=== PATIENT | male | born 1970 | race Caucasian/White ===

== ENCOUNTER 2020-01-09 10:46 | Inpatient (IN) ==
[2020-01-09] MEDS ORDERED: SODIUM CHLORIDE 0.9% 1000ML 1,000 ML IV SCH ×2 (12:00→14:30)
[2020-01-09 12:11] LABS: Basophils # (auto) 0.02 K/uL (0-0.2); Basophils % (auto) 0.3 %; Eosinophils # (auto) 0.07 K/uL (0-0.5); Eosinophils % (auto) 1.1 %; Hematocrit (blood only) 33.5 % (42-52); Hemoglobin 11.8 g/dL (14.0-18.0); Immature Granulocytes # (auto) 0.07 K/uL (0.00-0.02); Immature Granulocytes % (auto) 1.1 %; Lymphocytes # (auto) 1.09 K/uL (1.2-3.4); Lymphocytes % (auto) 17.6 %; Mean Corpuscular Hemoglobin 28.2 pg (25-34); Mean Corpuscular Hgb Conc 35.2 g/dL (32-36); Mean Platelet Volume 9.5 fL (7.4-10.4); Monocytes # (auto) 0.75 K/uL (0.11-0.59); Monocytes % (auto) 12.1 %; Neutrophils # (auto) 4.21 K/uL (1.4-6.5); Neutrophils % (auto) 67.8 %; Platelet Count 209 K/uL (130-400); RDW Coefficient of Variation 14.3 % (11.5-14.5); RDW Standard Deviation 41.7 fL (36.4-46.3); Red Blood Count 4.19 M/uL (4.7-6.1); White Blood Count 6.21 K/uL (4.8-10.8)
[2020-01-09 12:13] LABS: Appearance Urine Clear (Clear); Bacteria Urine Automated Negative (Negative); Blood Urine Negative (Negative); Color Urine Dark Yellow; Glucose Urine UA Trace (Negative); Ketones Urine Trace (Negative); Leukocyte Esterase Urine Trace (Negative); Nitrite Urine Positive (Negative); Protein Urine Negative (Negative); RBC Urine Automated 0-4 /hpf (0-4); Specific Gravity Urine 1.014 (1.000-1.030); Urobilinogen Urine Negative (Negative)
[2020-01-09 12:17] LABS: Bilirubin Urine 3+ (Negative)
[2020-01-09 12:18] LABS: Ictotest Urine Positive (Negative)
[2020-01-09 12:32] LABS: Albumin Globulin Ratio 0.6 (0.9-2); Albumin Level 3.2 gm/dl (3.4-5.0); BUN Creatinine Ratio 15.3 (10-20); Bilirubin,Total 5.2 mg/dl (0.2-1); Calcium 8.7 mg/dl (8.5-10.1); Creatinine Clr Calc Pharmacy 70.7 ml/min; Est GFR (Non-African American) 55.2; Globulin 5.6 gm/dl (2.5-4.0); Potassium 3.7 mmol/L (3.5-5.1); Total Protein 8.8 gm/dl (6.4-8.2)
[2020-01-09] MEDS ORDERED: CEFEPIME 2,000 MG/20 ML VIAL IV STA (12:49)
--- NOTE | 2020-01-09 12:51 | Emergency Department Note ---
History of Present Illness General Chief complaint: Abnormal Labs/Diagnostic Testing Stated complaint: ABNORMAL BLOOD WORK-ABD PAIN,NAUSEA LAST WEEK Time Seen by Provider: 01/09/20 11:35 Source: patient Mode of arrival: ambulatory Limitations: no limitations History of Present Illness Provider complaint: Jaundice This is a 49-year-old male who presents to the ED with a chief complaint of abnormal labs and right upper quadrant abdominal pain. The patient has a history of gallstones. He was supposed to have his gallbladder removed prior to Cov19 but this was delayed. The patient states that he was supposed to have his gallbladder out in September. The patient has developed right upper quadrant abdominal pain this weekend. He had associated nausea and fevers and chills as well as a temperature of 100.4. He states that his pain seems to be better now. He currently does not have any nausea. He noticed that he was becoming jaundice and was seen by his PCP and had blood work yesterday. His blood work s howed that his bilirubin and LFTs were elevated. He was referred here for further evaluation today. He denies any nausea or vomiting. Home Medications Home Medications Medication Instructions Recorded Confirmed Type hydrochlorothiazide 25 mg PO QAM 08/10/19 01/09/20 History losartan [Cozaar] 100 mg PO QAM 08/10/19 01/09/20 History metformin 1,000 mg PO BID 08/10/19 01/09/20 History pantoprazole [Protonix] 40 mg PO QAM 08/10/19 01/09/20 History Allergies Allergy/AdvReac Type Severity Reaction Status Date / Time No Known Allergies Allergy Unverified 01/09/20 11:19 Past Med/Surg History Medical History Abnormal liver scan pt states "they saw something on my liver. 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 Surgical History History of appendectomy History of ERCP History of esophagogastroduodenoscopy (EGD) Family History Mother Family history of diabetes mellitus Sister Family history of diabetes mellitus Other No family history of adverse response to anesthesia Social History Smoking Status: Current some day smoker Tobacco Type: Cigars Cigarettes Per Day: occasional; Second Hand Exposure: No (occ at workplace); Hx Alcohol Use: Yes Hx Substance Use: No Preferred Language: Micronesian Communication Ability: Effective Director Of Archives Required: No Beliefs That Will Affect Care: None Current Living Situation: Spouse Feels Safe at Home: Yes Review of Systems A total of 10 systems reviewed and were otherwise negative Physical Exam Vital Signs Vital Signs - 24 hr 01/09/20 10:47 01/09/20 13:09 Temperature 37.1 C Temperature Source Oral Pulse Rate 111 H Pulse Rate [Apical] 78 Respiratory Rate 20 18 Respiratory Effort / Characteristics Non-Labored Spontaneous Respiratory Depth Normal Respiratory Pattern Regular Blood Pressure 141/91 H Blood Pressure [Right Arm] 135/87 Blood Pressure Mean 107 Blood Pressure Mean [Right Arm] 103 Pulse Oximetry 100 98 Oxygen Delivery Method Room Air Room Air Sepsis Recent Fever Within 48 Hours No Sepsis New/Unexplained Change in Mental Status N/A Sepsis Action Taken by Nursing No Action Required CONSTITUTIONAL/VITAL SIGNS: Reviewed / noted above. GENERAL: Non-toxic in appearance. INTEGUMENTARY: Warm, dry, and [place]. HEAD: Normocephalic. EYES: Positive scleral icterus. ENT/OROPHARYNX: clear and moist. LYMPHADENOPATHY/NECK: Is supple without lymphadenopathy or meningismus. RESPIRATORY: Lungs clear and equal. CARDIOVASCULAR: Tachycardic rate and regular rhythm. GI/ABDOMEN: Soft and nontender. No organomegaly or pulsatile mass. No rebound or guarding. Normal bowel sounds. EXTREMITIES: Warm and well perfused. BACK: No CVA tenderness. NEUROLOGICAL: Intact without focal deficits. PSYCHIATRIC: normal affect. MUSCULOSKELETAL: Normally developed with good muscle tone. TRIAGE NURSING DOCUMENTATION REVIEWED. Course Administered Medications Discontinued Medications Sodium Chloride (Nss 1000ml) 1,000 mls @ 999 mls/hr IV .Q1H1M JOSE RAMON Stop: 01/09/20 13:00 Last Admin: 01/09/20 12:10 Dose: 999 mls/hr Documented by: [id number] Cefepime HCl (Maxipime) 2,000 mg in 20 mls @ 5 mls/min IV NOW STA; Protocol Stop: 01/09/20 12:52 Last Admin: 01/09/20 13:19 Dose: 5 mls/min Documented by: [id number] Medical Decision Making Differential Diagnosis Differential considered: pancreatitis, hepatitis, acute cholecystitis, AAA, UTI, pyelonephritis, kidney stones, appendicitis, diverticulitis, shingles, bowel obstruction, mesenteric ischemia, intussusception,hernia, testicular torsion, ovarian torsion, ruptured ovarian cyst,ectopic , . Medical Records Attestation: I reviewed the patient's medical records. Home Medications Current Medication List: was personally reviewed by me Laboratory Data Attestation: I reviewed the patient's lab results. Result diagrams: 01/09/20 12:01 01/09/20 12:01 Lab Results 01/09/20 01/09/20 01/09/20 Range/Units 12:01 12:01 Unknown WBC 6.21 (4.8-10.8) K/uL RBC 4.19 L (4.7-6.1) M/uL Hgb 11.8 L (14.0-18.0) g/dL Hct 33.5 L (42-52) % MCV 80.0 (80-100) fL MCH 28.2 (25-34) pg MCHC 35.2 (32-36) g/dL RDW Std Deviation 41.7 (36.4-46.3) fL RDW Coeff of Gretchen 14.3 (11.5-14.5) % Plt Count 209 (130-400) K/uL MPV 9.5 (7.4-10.4) fL Immature Gran % (Auto) 1.1 % Neut % (Auto) 67.8 % Lymph % (Auto) 17.6 % [place] % (Auto) 12.1 % Eos % (Auto) 1.1 % Baso % (Auto) 0.3 % Neut # (Auto) 4.21 (1.4-6.5) K/uL Lymph # (Auto) 1.09 L (1.2-3.4) K/uL [place] # (Auto) 0.75 H (0.11-0.59) K/uL Eos # (Auto) 0.07 (0-0.5) K/uL Baso # (Auto) 0.02 (0-0.2) K/uL Immature Gran # (Auto) 0.07 H (0.00-0.02) K/uL Sodium 137 (136-145) mmol/L Potassium 3.7 (3.5-5.1) mmol/L Chloride 107 (98-107) mmol/L Carbon Dioxide 23 (21-32) mmol/L Anion Gap 7.0 (3-11) BUN 22 H (7-18) mg/dl Creatinine 1.47 H (0.6-1.4) mg/dl Est Cr Clr Drug Dosing 70.7 ml/min Est GFR ( Amer) 64.0 Est GFR (Non-Af Amer) 55.2 BUN/Creatinine Ratio 15.3 (10-20) Glucose 204 H (70-99) mg/dl Calcium 8.7 (8.5-10.1) mg/dl Total Bilirubin 5.2 H (0.2-1) mg/dl AST 105 H (15-37) U/L ALT 243 H (12-78) U/L Alkaline Phosphatase 307 H (45-117) U/L Total Protein 8.8 H (6.4-8.2) gm/dl Albumin 3.2 L (3.4-5.0) gm/dl Globulin 5.6 H (2.5-4.0) gm/dl Albumin/Globulin Ratio 0.6 L (0.9-2) Lipase 330 (73-393) U/L Urine Color Dark Yellow Urine Appearance Clear (Clear) Urine pH 5.0 (4.5-7.5) Ur Specific [place] 1.014 (1.000-1.030) Urine Protein Negative (Negative) Urine Glucose (UA) Trace H (Negative) Urine Ketones Trace H (Negative) Urine Blood Negative (Negative) Urine Nitrite Positive A (Negative) Urine Bilirubin 3+ H (Negative) Urine Urobilinogen Negative (Negative) Ur Leukocyte Esterase Trace H (Negative) Urine WBC (Auto) 1-5 (0-5) /hpf Urine RBC (Auto) 0-4 (0-4) /hpf U Hyaline Cast (Auto) 5-10 H (0-5) /lpf U Epithel Cells (Auto) 5-10 H (0-5) /lpf Urine Bacteria (Auto) Negative (Negative) Imaging Data Radiologist's Impression: US gallbladder CLINICAL HISTORY: elevated LFTS jaundice COMPARISON STUDY: CT scan dated 02/17/2018 FINDINGS: No focal hepatic masses are visualized. There is no definite intrahe patic biliary ductal dilatation. The gallbladder is contracted. There is an equivocal subcentimeter calculus in the gallbladder neck. The pancreas is poorly visualized due to overlying bowel gas. No definite pancreatic abnormalities are evident. The common bile duct appeared mildly dilated and appear to contain echogenic debris. IMPRESSION: 1. Mildly dilated common bile duct ranging from 8 to 10 mm. Echogenic debris was visualized within the duct. 2. Contracted gallbladder containing an equivocal 8 mm calculus Blood Pressure Blood Pressure Findings: Elevated blood pressure Blood Pressure Disposition: further management by hospitalist LOUISE Delgado The patient presents to the emergency department with abnormal LFTs. He has a history of gallstones. His exam reveals some mild right upper quadrant abdominal tenderness. His vital signs are stable. He has had a recent fever. His white blood cell count was normal. His BUN is 22 and his creatinine is 1.47. Glucose is 204. Total bilirubin is 5.2. AST is 105, ALT is 243 and alkaline phosphatase is 307. The patient's urine reveals bilirubin and nitrite positive. He also has some leukocyte Estrace. Gallbladder ultrasound shows a 8 mm gallstone with a mildly dilated biliary duct. The patient will be seen by the hospital service for further evaluation and care. He was given normal saline IV 1 L. The patient was also given IV cefepime as he reports that he had a fever recently associated with his symptoms. Impression & Plan Biliary obstruction, Cholelithiasis, Transaminitis Discharge Plan Visit Data Chief Complaint: Abnormal Labs/Diagnostic Testing Stated Complaint: ABNORMAL BLOOD WORK-ABD PAIN,NAUSEA LAST WEEK ED Provider: Chase Sanchez Discharge Problem: Biliary obstruction, Cholelithiasis, Transaminitis Patient Disposition: Being Evaluated by Hospitalist Forms Stand Alone Forms: [facility], [facility], Important Visit Information Prescriptions Prescriptions: No Action pantoprazole [Protonix] 40 mg Tablet,Delayed Release (Dr/Ec) 40 mg PO QAM RF: 0 metformin 1,000 mg Tablet 1,000 mg PO BID RF: 0 hydrochlorothiazide 25 mg Tablet 25 mg PO QAM RF: 0 losartan [Cozaar] 100 mg Tablet 100 mg PO QAM RF: 0 Referrals Referrals: Jesus Woodall MD [Primary Care Provider] - Discharge Problem: Cholelithiasis Qualifiers: Cholelithiasis location: gallbladder Cholecystitis presence: without cholecystitis Biliary obstruction: with biliary obstruction Qualified Code(s): K80.21 - Calculus of gallbladder without cholecystitis with obstruction
--- NOTE | 2020-01-09 13:15 | Ultrasound Report ---
US gallbladder CLINICAL HISTORY: elevated LFTS jaundice COMPARISON STUDY: CT scan dated 02/17/2018 FINDINGS: No focal hepatic masses are visualized. There is no definite intrahepatic biliary ductal di latation. The gallbladder is contracted. There is an equivocal subcentimeter calculus in the gallbladder neck. The pancreas is poorly visualized due to overlying bowel gas. No definite pancreatic abnormalities ar e evident. The common bile duct appeared mildly dilated and appear to contain echogenic debris. IMPRESSION: 1. Mildly dilated common bile duct ranging from 8 to 10 mm. Echogenic debris was visualized within th e duct. 2. Contracted gallbladder containing an equivocal 8 mm calculus ACT 112: Negative or not required by law. Electronically signed by: Jose Antonio Eaton M.D. 01/09/2020 1:14 PM
[2020-01-09] MEDS ORDERED: ONDANSETRON INJ 2 MG/ML 2 ML VIAL IV PRN ×2 (14:29→17:55)
[2020-01-09] MEDS ORDERED: ACETAMINOPHEN 325 MG TAB PO PRN (14:29)
--- NOTE | 2020-01-09 14:55 | Gastrointestinal Consultation ---
Date of Consultation January 09, 2020 Assessment & Plan (1) PSC (primary sclerosing cholangitis): 1. ERCP today by Dr. Chappell 2. Zosyn 3. NPO 4. Further recommendations to follow ERCP. Present on Admission?: Yes (2) Cholelithiasis: Present on Admission?: Yes (3) Biliary obstruction: Present on Admission?: Yes Supervising Physician Co-Signing Physician Notes I performed a history and physical examination of the patient today, including specifically on physical exam - soft abdomen. I have discussed the patient's management with the advanced practitioner. Please refer to the nurse practitioner's note for the documented findings and plan of care. ERCP today for cholangitis History of Present Illness Reason for Consultation: Choledocholithiasis Requesting Physician: Dr. Velasquez Attending Physician: Dr. Velasquez History of Present Illness Mr. Zach Graham is a 49 yr old male pt of Dr. Woodall with a hx of PSC, HTN, DM-2 Celiac and MGUS. He follows with Lauren Hernandez for Celiac and new dx of PSC in 2019. He is maintained on ursodiol. He underwent ERCP by Dr. Chappell in Jul 2019. He has known cholelithiasis and was planning for cholecystectomy in September but it was delayed due to COVID. Starting on January 02, he has had intermittent RUQ pain and nausea. He also had to 100.4, nausea. Today he noticed jaundice, dark urine and light BMs. Currently symptoms are better and he is afebrile, but he was seen by his on Tuesday, got labs yesterday. Today PCP contact him and directed him to the ED. On arrival at [facility], US with dilated, debris filled CBD. LFTs elevated T Bili 5.2, AST 105, ALT 243, Alk Phos 307. Most recent prior LFTs in the OP setting were normal in November 2019. WBC is normal at 6. He is awake, alert, oriented comfortable and hemodyamically stable. He has recieved a dose of Cefepime. Allergies Allergy/AdvReac Type Severity Reaction Status Date / Time No Known Allergies Allergy Unverified 01/09/20 11:19 Home Medications Home Medications Medication Instructions Recorded Confirmed Type hydrochlorothiazide 25 mg PO QAM 08/10/19 01/09/20 History losartan [Cozaar] 100 mg PO QAM 08/10/19 01/09/20 History metformin 1,000 mg PO BID 08/10/19 01/09/20 History pantoprazole [Protonix] 40 mg PO QAM 08/10/19 01/09/20 History ursodiol 500 mg PO TID 01/09/20 01/09/20 History Patient History Medical History Abnormal liver scan pt states "they saw something on my liver. 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 Surgical History History of appendectomy History of ERCP History of esophagogastroduodenoscopy (EGD) Family History Mother Family history of diabetes mellitus Sister Family history of diabetes mellitus Other No family history of adverse response to anesthesia Social History (Updated 01/09/20 @ 15:08 by Adelita Hernandez PA-C) Smoking Status: Current some day smoker Tobacco Type: Cigars Cigarettes Per Day: occasional; Second Hand Exposure: No; Do You Dip or Chew Tobacco: No; Tobacco Cessation Education Requested by Patient: No Hx Alcohol Use: Yes Alcohol Intake Frequency: 2-4 x/Month Hx Substance Use: No Preferred Language: Wallisian Communication Ability: Effective Dietitian Teaching Required: No Beliefs That Will Affect Care: None Current Living Situation: Spouse Other Information That Helps Us Care for You: No Feels Safe at Home: Yes Safety Concerns: Feels Safe At This Time Review of Systems Review of Systems: ROS: Gen: + fevers; Denies weakness, weight loss Eyes: + icterus No eye redness, or pain, no recent vision changes Resp: No SOB, no cough Cardio: No palpitations/irregular beats, no chest pain GI: + RUQ abdominal pain, + nausea/vomiting : Denies pain on urination Skin: + jaundice; + diffuse itching; no new rashes Physical Exam Constitutional: WD/WN, vitals as above Eyes: PERRL, conjunctivae normal, anicteric sclerae ENMT: external ear and nose normal, oropharynx normal Neck: trachea midline, no thyromegaly Respiratory: normal respiratory effort, lungs clear to auscultation Cardiovascular: RRR, no murmur, no edema Gastrointestinal (Abdomen): Inspection/Auscultation: abdomen normal to inspection; abdomen not distended Percussion/Palpation: abdomen soft; abdomen nontender Skin: + jaundice Neurologic: PERRL, EOMI, accommodation nl, no face palsy, no dysarthria Psychiatric: A+Ox3, euthymic affect Lymphatic: no cervical or axillary lymphadenopathy Results & Data ([facility]) Vital Signs (Past 12 Hours) Vital Signs Temp Pulse Pulse Resp BP BP Pulse Ox 01/09/20 13:09 78 18 135/87 98 01/09/20 10:47 37.1 C 111 H 20 141/91 H 100 Laboratory Results WBC 6, Hb 11, Hct 33, Plt 209, Na 137, K 3.7, BUN 22, Cr 1.47. Diagnostic Findings US 01/09/20: 1. Mildly dilated common bile duct ranging from 8 to 10 mm. Echogenic debris was visualized within the duct. 2. Contracted gallbladder containing an equivocal 8 mm calculus (1) Cholelithiasis Biliary obstruction: with biliary obstruction Cholecystitis presence: without cholecystitis Cholelithiasis location: gallbladder Qualified Code(s): K80.21 - Calculus of gallbladder without cholecystitis with obstruction
--- NOTE | 2020-01-09 15:00 | History & Physical Report ---
Date of Service January 09, 2020 Assessment & Plan (1) RUQ pain: (2) Transaminitis: (3) Cholelithiasis: Pt is 49 y/o M with PMH DM II, HTN, h/o gallstones presented to ER with c/o RUQ, abdominal pain, nausea, decreased oral intake x 1 week. Last week with reported low grade fever. Today reports no current nausea or abdominal pain. Ate several crackers this morning at 6:00AM In ER afebrile, P: 111 down to 78, R: 20, BP: 141/91, 100% on RA. WBC: 6, T bili: 5.2, AST: 105, ALT: 243, Alk Phos: 307, Lipase: 330 Gallbladder US: 1. Mildly dilated common bile duct ranging from 8 to 10 mm. Echogenic debris was visualized within the duct. 2. Contracted gallbladder containing an equivocal 8 mm calculus -In ER received 1L NSS, cefepime -NPO for now -Morphine prn pain, Zofran prn nausea -IVF -Cefepime -GI consult, collection correspondent aware and plans for ERCP -General surgery consult -CBC, CMP in am (4) TOO (acute kidney injury): BUN: 22, Cr: 1.47, GFR: 55 Suspect secondary to dehydration -IVF -Avoid nephrotoxic agents when possible (5) HTN (hypertension): Stable -Will hold losartan and HCTZ secondary to TOO (6) Diabetes mellitus, type 2: A1c: 6.5 on 01/08/2020 -Hold metformin -Novolog sliding scale with loose parameters at this time secondary to NPO status DVT Prophylaxis -Low risk, ambulate Follows with Dr Woodall for routine care Pt was seen and care coordinated with Dr Velasquez. See addendum History of Present Illness Chief Complaint: RUQ abdominal pain Primary Care Provider: Jesus Woodall MD Pt is 49 y/o M with PMH DM II, HTN, h/o gallstones presented to ER with c/o abdominal pain x 1 week. Pt with known h/o gallstones and was to have gallbladder out several months ago but this was postponed secondary to the pandemic. Pt states 6 days ago started with not feeling well with low grade fever 100.4F, nausea and dry heaves. Was followed by RUQ discomfort. Has been having decreased oral intake. Denies vomiting or diarrhea. Saw PCP office on 01/07/2020 and had labs yesterday revealing elevated LFTs and was referred to ER today. Pt states today started feeling better and no nausea or abdominal pain today. Denies diaphoresis, TELLES, dizziness, syncope, vision changes, neck pain, CP, SOB, orthopnea, palpitations, cough, sore throat, choking, otalgia, rhinorrhea, paresthesias, weakness, extremity weakness, extremity edema, rashes, urinary symptoms. Allergies Allergy/AdvReac Type Severity Reaction Status Date / Time No Known Allergies Allergy Unverified 01/09/20 11:19 Home Medications Home Medications Medication Instructions Recorded Confirmed Type hydrochlorothiazide 25 mg PO QAM 08/10/19 01/09/20 History losartan [Cozaar] 100 mg PO QAM 08/10/19 01/09/20 History metformin 1,000 mg PO BID 08/10/19 01/09/20 History pantoprazole [Protonix] 40 mg PO QAM 08/10/19 01/09/20 History ursodiol 500 mg PO TID 01/09/20 01/09/20 History Past Med/Surg History Medical History Abnormal liver scan pt states "they saw something on my liver. 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 Surgical History History of appendectomy History of ERCP History of esophagogastroduodenoscopy (EGD) Family History Mother Family history of diabetes mellitus Sister Family history of diabetes mellitus Other No family history of adverse response to anesthesia Social History (Updated 01/09/20 @ 15:08 by Adelita Hernandez PA-C) Smoking Status: Current some day smoker Tobacco Type: Cigars Cigarettes Per Day: occasional; Second Hand Exposure: No; Do You Dip or Chew Tobacco: No; Tobacco Cessation Education Requested by Patient: No Hx Alcohol Use: Yes Alcohol Intake Frequency: 2-4 x/Month Hx Substance Use: No Preferred Language: Tanzanian Communication Ability: Effective Basketball Coach Required: No Beliefs That Will Affect Care: None Current Living Situation: Spouse Other Information That Helps Us Care for You: No Feels Safe at Home: Yes Safety Concerns: Feels Safe At This Time Review of Systems Review of Systems: All systems reviewed & are unremarkable except as noted in HPI & below Physical Exam Physical Exam: General: no distress, WDWN Head: normocephalic, atraumatic Eyes: PERRL, EOM's intact, conjunctiva non-injected, +icteric ENT: normal inspection external ears, nose, mucous membranes mildly dry Neck: supple, trachea midline, non-tender Lungs: clear, no respiratory distress, no wheezing/rhonchi/rales CV: RRR, no murmur, no pretibial edema Abd: normal BS, soft, mild tenderness to palpation RUQ without rebound or guarding Ext: no cyanosis, no calf tenderness Neuro: A&O x 3, no focal deficits noted, normal affect Skin: warm, dry, skin slight yellow discoloration Results & Data Results & Data ([facility]) Vital Signs (Past 12 Hours) Vital Signs Temp Pulse Pulse Resp BP BP Pulse Ox 01/09/20 13:09 78 18 135/87 98 01/09/20 10:47 37.1 C 111 H 20 141/91 H 100 Laboratory Results Short CBC 01/09/20 Range/Units 12:01 WBC 6.21 (4.8-10.8) K/uL Hgb 11.8 L (14.0-18.0) g/dL Hct 33.5 L (42-52) % Plt Count 209 (130-400) K/uL BMP 01/09/20 12:01 Sodium 137 Potassium 3.7 Chloride 107 Carbon Dioxide 23 BUN 22 H Creatinine 1.47 H Glucose 204 H Calcium 8.7 Liver Function 01/09/20 Range/Units 12:01 Total Bilirubin 5.2 H (0.2-1) mg/dl AST 105 H (15-37) U/L ALT 243 H (12-78) U/L Alkaline Phosphatase 307 H (45-117) U/L Albumin 3.2 L (3.4-5.0) gm/dl Urine 01/09/20 Range/Units Unknown Urine Color Dark Yellow Urine Appearance Clear (Clear) Urine pH 5.0 (4.5-7.5) Ur Specific [place] 1.014 (1.000-1.030) Urine Protein Negative (Negative) Urine Glucose (UA) Trace H (Negative) Diagnostic Findings GALLBLADDER US: IMPRESSION: 1. Mildly dilated common bile duct ranging from 8 to 10 mm. Echogenic debris was visualized within the duct. 2. Contracted gallbladder containing an equivocal 8 mm calculus Code Status & VTE Plan VTE Prophylaxis Plan VTE Prophylaxis will be ordered: Yes Supervising Physician Co-Signing Physician Notes Attending addendum: Patient seen and examined, care coordinated with Melanie Hernandez PA-C 49-year-old male with history of biliary colic, was scheduled to have laparoscopic cholecystectomy by Dr. Arteaga on September this year, Elective surgery was postponed due to secondary to COVID-19 pandemic. Patient presents with on and off right upper quadrant pain for last 5 days, Ultrasound of gallbladder showed possible obstructed gallstone biliary duct, Labs shows elevated bilirubin greater than 5/elevated AST ALT, transaminases Patient is afebrile, normal white count, does reports of low-grade fever and chills past few days Vitals as reported Lab and images reviewed Physical exam: as per Melanie Hernandez PA-C Obstructed gallstone/cholelithiasis/biliary colic [facility] updated, patient is ordered n.p.o., will have ERCP later today General surgery consulted for possible elective cholecystectomy Acute renal failure: Getting elevated 1.4, possible secondary to dehydration, poor p.o. intake, for acute gallstone cholecystitis Ordered for IV fluid, avoid NSAIDs and contrast studies Please refer to further documentation by Melanie Hernandez PA-C for discussion of other issues Rere Velasquez MD (1) Cholelithiasis Biliary obstruction: with biliary obstruction Cholecystitis presence: without cholecystitis Cholelithiasis location: gallbladder Qualified Code(s): K80.21 - Calculus of gallbladder without cholecystitis with obstruction
[2020-01-09 15:18] LABS: Prothrombin Time 10.6 Seconds (9.0-12.0)
[2020-01-09] MEDS ORDERED: PIPERACILL/TAZOBAC CONSULT ACTIVE PRN (15:37)
--- NOTE | 2020-01-09 16:14 | Anesthesiology Consultation ---
Date of Service January 09, 2020 Assessment & Plan (1) Encounter for pre-operative examination: Chart Review Chart Review: Acceptable Risk for Surgery History Surgery Operation Date: 01/09/20 12:15 Proposed Procedures p Endoscopic Retrograde Cholangiopancreatogram - Harmony Chappell MD Height/Weight Height: 6 ft 2 in Weight: 92.8 kg Allergies Allergy/AdvReac Type Severity Reaction Status Date / Time No Known Allergies Allergy Unverified 01/09/20 11:19 Medications Home Medications Medication Instructions Recorded Confirmed Last Taken hydrochlorothiazide 25 mg PO QAM 08/10/19 01/09/20 Unknown losartan [Cozaar] 100 mg PO QAM 08/10/19 01/09/20 Unknown metformin 1,000 mg PO BID 08/10/19 01/09/20 Unknown pantoprazole [Protonix] 40 mg PO QAM 08/10/19 01/09/20 Unknown ursodiol 500 mg PO TID 01/09/20 01/09/20 Unknown Past Medical History Medical History Abnormal liver scan pt states "they saw something on my liver. 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 Past Family History Family History Mother Family history of diabetes mellitus Sister Family history of diabetes mellitus Other No family history of adverse response to anesthesia Past Surgical History Surgical History History of appendectomy History of ERCP History of esophagogastroduodenoscopy (EGD) Social History Smoking Status: Current some day smoker tobacco type: cigars Smoking cigarettes per day: occasional Do You Dip or Chew Tobacco: No Hx Alcohol Use: Yes alcohol intake frequency: a few times a month Alcohol Intake Frequency Comment: 2 to 4 times a month Hx Substance Use: No substance use type: does not use Physical Exam Vital Signs Last Vital Signs Temp 37.1 C 01/09/20 10:47 Pulse 86 01/09/20 15:46 Resp 20 01/09/20 15:46 BP 135/84 01/09/20 15:46 Pulse Ox 100 01/09/20 15:46 Testing Laboratory Results 01/09/20 12:01 01/09/20 12:01 PT 10.6 Seconds (9.0-12.0) 01/09/20 14:58 INR 1.0 (0.9-1.1) 01/09/20 14:58 Urine Color Dark Yellow 01/09/20 Unknown Urine Appearance Clear (Clear) 01/09/20 Unknown Urine pH 5.0 (4.5-7.5) 01/09/20 Unknown Ur Specific [place] 1.014 (1.000-1.030) 01/09/20 Unknown Urine Protein Negative (Negative) 01/09/20 Unknown Urine Glucose (UA) Trace (Negative) H 01/09/20 Unknown Urine Ketones Trace (Negative) H 01/09/20 Unknown Urine Nitrite Positive (Negative) A 01/09/20 Unknown Ur Leukocyte Esterase Trace (Negative) H 01/09/20 Unknown Urine WBC (Auto) 1-5 /hpf (0-5) 01/09/20 Unknown Urine RBC (Auto) 0-4 /hpf (0-4) 01/09/20 Unknown U Hyaline Cast (Auto) 5-10 /lpf (0-5) H 01/09/20 Unknown U Epithel Cells (Auto) 5-10 /lpf (0-5) H 01/09/20 Unknown Urine Bacteria (Auto) Negative (Negative) 01/09/20 Unknown
[2020-01-09] MEDS ORDERED: GLUCOSE 10 TABS/TUBE PO PRN (16:15)
[2020-01-09] MEDS ORDERED: GLUCAGON FOR INJ 1 MG VIAL SQ PRN (16:15)
[2020-01-09] MEDS ORDERED: MoRPHine SULFATE 2 MG/ML CARP IV PRN (16:15)
[2020-01-09] MEDS ORDERED: CARBOHYDRATES FOR HYPOGLYCEMIA PO PRN (16:15)
[2020-01-09] MEDS ORDERED: CEFEPIME 2,000 MG in SYRINGE 7.5 ML IV SCH (16:15)
[2020-01-09] MEDS ORDERED: DEXTROSE 50% 50 ML SYRINGE IV PRN (16:15)
[2020-01-09] MEDS ORDERED: GLUCOSE 40% GEL 15 GM TUBE PO PRN (16:15)
[2020-01-09] MEDS ORDERED: PIPERACILLIN/TAZOBACTAM 3.375 GM in DEXTROSE 5% 100 ML IV ONE (16:30)
[2020-01-09] MEDS ORDERED: INSULIN ASPART 100 UNITS/ML 3 ML PEN SC SCH (16:30)
[2020-01-09] MEDS ORDERED: Nursing to Pharmacy Communication SCH (17:15)
--- NOTE | 2020-01-09 17:39 | History & Physical Bridge Note ---
Date of Service January 09, 2020 History & Physical Bridge Note I have examined the patient, reviewed the History & Physical and in the interval since the performance of the History & Physical I have noted the following changes of clinical significance: no changes noted
[2020-01-09] MEDS ORDERED: ROCURONIUM BROMIDE 10 MG/ML 5 ML VIAL IV ONE (17:48)
[2020-01-09] MEDS ORDERED: SUCCINYLCHOLINE CHLORIDE 20 MG/ML 10 ML VIAL IV ONE (17:48)
[2020-01-09] MEDS ORDERED: LIDOCAINE HCL 2% 2 ML VIAL/AMP(20MG/ML) INFIL ONE ×2 (17:48→18:40)
[2020-01-09] MEDS ORDERED: PROPOFOL IV EMULSION 10 MG/ML 20 ML VIAL IV ONE ×3 (17:48→18:40)
[2020-01-09] MEDS ORDERED: ONDANSETRON INJ 2 MG/ML 2 ML VIAL ONE (17:48)
[2020-01-09] MEDS ORDERED: MIDAZOLAM HCL 1 MG/ML 2ML VIAL ONE (17:49)
[2020-01-09] MEDS ORDERED: fentaNYL citrate 100 MCG/2 ML VIAL ONE (17:49)
[2020-01-09] MEDS ORDERED: LABETALOL HCL IV 5 MG/ML 20ML IV PRN (17:55)
[2020-01-09] MEDS ORDERED: ATROPINE SULFATE 0.1 MG/ML 10ML SYR IV PRN (17:55)
[2020-01-09] MEDS ORDERED: fentaNYL citrate 100 MCG/2 ML VIAL IV PRN (17:55)
[2020-01-09] MEDS ORDERED: INDOMETHACIN 50 MG SUPP PR ONE (18:02)
[2020-01-09] MEDS ORDERED: INDOMETHACIN 50 MG SUPP PR STA (18:03)
--- NOTE | 2020-01-09 18:42 | Operative Report ---
Post Operative Report Pre & Post Diagnosis Operation Date: 01/09/20 12:15 Pre-Op Diagnosis: Common bile duct obstruction, calculus of gallbladder without cholecystitis Post-Op Diagnosis: Common bile duct obstruction, calculus of gallbladder without cholecystitis I identified the patient and participated in the time-out.: Yes Procedure Operation Date: 01/09/20 12:15 Actual Procedures p Endoscopic Retrograde Cholangiopancreatogram, biliary stent placement (Not Applicable) - Harmony Chappell MD Surgeon Harmony Chappell MD Digester Cook none Estimated Blood Loss 0 Findings See Below (CBD stones and pus) Specimens None Description of Procedure ERCP I attest to the content of the Intraoperative Record and any orders documented therein. Any exceptions are noted below.
--- NOTE | 2020-01-09 19:02 | GI REPORT ---
Patient Name: Zach Graham Procedure Date: 01/09/2020 6:02 PM Date of : 1970 Admit Type: Inpatient Age: 49 Gender: Male Attending MD: Harmony Chappell MD Procedure: ERCP Providers: Harmony Chappell MD Referring MD: Rere Velasquez Indications: Bile duct stone on Computed Tomogram Scan, For therapy of ascending cholangitis Medicines: Propofol per Anesthesia Complications: No immediate complications. Estimated Blood Loss: Estimated blood loss: none. Procedure: Pre-Anesthesia Assessment: - Prior to the procedure, a History and Physical was performed, and patient medications, allergies and sensitivities were reviewed. The patient's tolerance of previous anesthesia was reviewed. - The risks and benefits of the procedure and the sedation options and risks were discussed with the patient. All questions were answered and informed consent was obtained. - Patient identification and proposed procedure were verified prior to the procedure by the physician and the nurse. The procedure was verified in the procedure room. - Pre-procedure physical examination revealed no contraindications to sedation. After obtaining informed consent, the scope was passed under direct vision. Throughout the procedure, the patient's blood pressure, pulse, and oxygen saturations were monitored continuously. The scope was introduced through the mouth, and advanced to the duodenum and used to inject contrast into the bile duct. The ERCP was accomplished without difficulty. The patient tolerated the procedure well. Findings: The business education professor film was normal. The esophagus was successfully intubated under direct vision. The scope was advanced to a normal major papilla in the descending duodenum without detailed examination of the pharynx, larynx and associated structures, and upper GI tract. The upper GI tract was grossly normal. A biliary sphincterotomy had been performed. The sphincterotomy appeared open. A 0.035 inch straight standard wire was passed into the biliary tree. The 8.5 mm balloon was passed over the guidewire and the bile duct was then deeply cannulated. Contrast was injected. I personally interpreted the bile duct images. Ductal flow of contrast was adequate. Image quality was adequate. Contrast extended to the main bile duct. Opacification of the main bile duct and left and right hepatic ducts and all intrahepatic branches was successful. The maximum diameter of the ducts was 7 mm. The main bile duct and left main hepatic duct contained filling defect(s) thought to be a stone. The biliary tree was swept with an 11.5 mm balloon starting at the left intrahepatic duct(s). Sludge was swept from the duct. Many stones were removed. No stones remained. Pus was swept from the duct. One 7 Fr by 12 cm transpapillary plastic biliary stent with a single external flap and a single internal flap was placed into the left hepatic duct. Bile flowed through the stent. The stent was in good position. One 7 Fr by 11 cm transpapillary plastic biliary stent with a single external flap and a single internal flap was placed into the right hepatic duct. Bile flowed through the stent. The stent was in good position. Indomethacin 100 mg was given via suppository to decrease the risk of post-ERCP pancreatitis (PEP). PD was not cannulated. Impression: - Choledocholithiasis was found. Complete removal was accomplished by balloon extraction. - The biliary tree was swept and pus was found consistent with ascending cholangitis. - One plastic biliary stent was placed into the left hepatic duct. - One plastic biliary stent was placed into the right hepatic duct. Recommendation: - [facility] for [facility] care. - Refer to a surgeon for cholecystectomy this admission. - Repeat ERCP in 4 - 6 weeks to remove stent. - Complete a 10 days course of Antibiotics. Harmony Chappell MD 01/09/2020 7:01:48 PM This report has been signed electronically. Note Initiated On: 01/09/2020 6:02 PM Number of Addenda: 0 I attest to the content of the Intraoperative Record and orders documented therein, exceptions below {[id number]}
--- NOTE | 2020-01-09 19:06 | Anesthesiology Progress Note ---
Date of Service January 09, 2020 Anesthesia Post Procedure Vital Signs Vital Signs: Temp Pulse Pulse Pulse Resp BP BP 01/09/20 19:05 36.1 C L 82 15 110/63 01/09/20 18:55 74 14 87/53 L 01/09/20 18:49 36 C L 78 13 88/43 L 01/09/20 17:30 37.2 C 77 16 126/88 01/09/20 16:15 36.9 C 74 18 137/77 01/09/20 15:46 86 20 01/09/20 13:09 78 18 01/09/20 10:47 37.1 C 111 H 20 141/91 H BP Pulse Ox 01/09/20 19:05 97 01/09/20 18:55 96 01/09/20 18:49 96 01/09/20 17:30 98 01/09/20 16:15 98 01/09/20 15:46 135/84 100 01/09/20 13:09 135/87 98 01/09/20 10:47 100 Transfer of Care Handoff Completed per policy Notes Mental Status: alert / awake / arousable Patient Amnestic to Procedure: Yes Nausea / Vomiting: adequately controlled Pain: adequately controlled Airway Patency, RR, SpO2: stable & adequate BP & HR: stable & adequate Hydration State: stable & adequate Anesthetic Complications: no major complications apparent
--- NOTE | 2020-01-09 19:14 | Fluoroscopy Report ---
[place] ERCP biliary ductal CLINICAL HISTORY: ERCP COMPARISON STUDY: None FLUOROSCOPY TIME: 182 seconds. NUMBER OF FLUOROSCOPIC IMAGES: 18 FINDINGS: The common bile duct was cannulated and retrograde fashion. Contrast was instilled. A ballo on catheter was introduced into the common bile duct. There are multiple filling defects within a lef t hepatic lobe biliary ductal branch. The final image demonstrates placement of 2 biliary enteric andreas nts. IMPRESSION: Calculi were visualized within the left main hepatic duct. Images demonstrate a balloon catheter being swept through the duct. The final image demonstrates placement of [address] ents. ACT 112: Negative or not required by law. Electronically signed by: Jose Antonio Eaton M.D. 01/09/2020 7:13 PM
[2020-01-09] MEDS: INSULIN ASPART 100 UNITS/ML 3 ML PEN SC SCH ×2 (19:17→23:59)
[2020-01-09] MEDS ORDERED: IOVERSOL 50ml IV ONE (19:32)
--- NOTE | 2020-01-09 19:45 | Surgery Consultation ---
Date of Consultation January 09, 2020 Assessment & Plan (1) Biliary obstruction: pt is a 49 year-old male who was admitted to hospital for RUQ pain, pt is S/P ERCP, CBD sone removed, cholelithiasis IMP: RUQ pain, cholelithiasis, cholangitis Plan, I recommend to do laparoscopic cholecystectomy, possible open or cholangiogram, D/W benefits, risks and alternatives of the surgery, the risks - infection, bleeding, injury CBD, pt and his understood, they agree with the surgery, i answered all questions, Iv antibiotic, NPO after MN (2) Cholelithiasis: (3) RUQ pain: (4) Transaminitis: History of Present Illness Attending Physician: Rere Velasquez MD Chief Complaint: RUQ abdominal pain Primary Care Provider: Jesus Woodall MD Pt is 49 y/o M with PMH DM II, HTN, h/o gallstones presented to ER with c/o abdominal pain x 1 week. Pt with known h/o gallstones and was to have gallbladder out several months ago but this was postponed secondary to the pandemic. Pt states 6 days ago started with not feeling well with low grade fever 100.4F, nausea and dry heaves. Was followed by RUQ discomfort. Has been having decreased oral intake. Denies vomiting or diarrhea. Saw PCP office on 01/07/2020 and had labs yesterday revealing elevated LFTs and was referred to ER today. Pt states today started feeling better and no nausea or abdominal pain today. Denies diaphoresis, TELLES, dizziness, syncope, vision changes, neck pain, CP, SOB, orthopnea, palpitations, cough, sore throat, choking, otalgia, rhinorrhea, paresthesias, weakness, extremity weakness, extremity edema, rashes, urinary symptoms. I ( Jenny Geller MD ) got a call got consult cholelithiasis, I reviewed pt's H/P, labs, U/S study and CT scan, ERCP, with pt, pt just finished ERCP today, finding- CBD stone, cholangitis. pt has no significant abdominal pain now, Allergies Allergy/AdvReac Type Severity Reaction Status Date / Time No Known Allergies Allergy Unverified 01/09/20 11:19 Home Medications Home Medications Medication Instructions Recorded Confirmed Type hydrochlorothiazide 25 mg PO QAM 08/10/19 01/09/20 History losartan [Cozaar] 100 mg PO QAM 08/10/19 01/09/20 History metformin 1,000 mg PO BID 08/10/19 01/09/20 History pantoprazole [Protonix] 40 mg PO QAM 08/10/19 01/09/20 History ursodiol 500 mg PO TID 01/09/20 01/09/20 History Past Med/Surg History Medical History Abnormal liver scan pt states "they saw something on my liver. 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 Surgical History History of appendectomy History of ERCP History of esophagogastroduodenoscopy (EGD) Family History Mother Family history of diabetes mellitus Sister Family history of diabetes mellitus Other No family history of adverse response to anesthesia Social History (Updated 01/09/20 @ 15:08 by Adelita Hernandez PA-C) Smoking Status: Current some day smoker Tobacco Type: Cigars Cigarettes Per Day: occasional; Second Hand Exposure: No; Do You Dip or Chew Tobacco: No; Tobacco Cessation Education Requested by Patient: No Hx Alcohol Use: Yes Alcohol Intake Frequency: 2-4 x/Month Hx Substance Use: No Preferred Language: Angolan Communication Ability: Effective Ceramic Coater Machine Required: No Beliefs That Will Affect Care: None Current Living Situation: Spouse Other Information That Helps Us Care for You: No Feels Safe at Home: Yes Safety Concerns: Feels Safe At This Time Review of Systems Review of Systems: All systems reviewed & are unremarkable except as noted in HPI & below Allergies Allergy/AdvReac Type Severity Reaction Status Date / Time No Known Allergies Allergy Unverified 01/09/20 11:19 Home Medications Home Medications Medication Instructions Recorded Confirmed Type hydrochlorothiazide 25 mg PO QAM 08/10/19 01/09/20 History losartan [Cozaar] 100 mg PO QAM 08/10/19 01/09/20 History metformin 1,000 mg PO BID 08/10/19 01/09/20 History pantoprazole [Protonix] 40 mg PO QAM 08/10/19 01/09/20 History ursodiol 500 mg PO TID 01/09/20 01/09/20 History Patient History Medical History Abnormal liver scan pt states "they saw something on my liver. 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 Surgical History History of appendectomy History of ERCP History of esophagogastroduodenoscopy (EGD) Family History Mother Family history of diabetes mellitus Sister Family history of diabetes mellitus Other No family history of adverse response to anesthesia Social History (Updated 01/09/20 @ 15:08 by Adelita Hernandez PA-C) Smoking Status: Current some day smoker Tobacco Type: Cigars Cigarettes Per Day: occasional; Second Hand Exposure: No; Do You Dip or Chew Tobacco: No; Tobacco Cessation Education Requested by Patient: No Hx Alcohol Use: Yes Alcohol Intake Frequency: 2-4 x/Month Hx Substance Use: No Preferred Language: Angolan Communication Ability: Effective Ceramic Coater Machine Required: No Beliefs That Will Affect Care: None Current Living Situation: Spouse Other Information That Helps Us Care for You: No Feels Safe at Home: Yes Safety Concerns: Feels Safe At This Time Review of Systems Review of Systems: All systems reviewed & are unremarkable except as noted in HPI & below Constitutional: as per Subjective / HPI Eyes: as per Subjective / HPI Ear, Nose, Mouth, Throat: as per Subjective / HPI Respiratory: as per Subjective / HPI Cardiovascular: as per Subjective / HPI Additional Comments: HTN Gastrointestinal: as per Subjective / HPI gallstone, ruptured appendicitis Genitourinary: + as per Subjective / HPI and + problem reported (TOO) Musculoskeletal: as per Subjective / HPI Integumentary: as per Subjective / HPI Neurologic: as per Subjective / HPI Psychiatric: as per Subjective / HPI Endocrine: as per Subjective / HPI DM Hematologic / Lymphatic: as per Subjective / HPI Allergy / Immunological: as per Subjective / HPI Physical Exam Constitutional: WD/WN, vitals as above well developed and well nourished Eyes: PERRL, conjunctivae normal, anicteric sclerae ENMT: external ear and nose normal, oropharynx normal Neck: trachea midline, no thyromegaly Respiratory: normal respiratory effort, lungs clear to auscultation Cardiovascular: RRR, no murmur, no edema Rate/Rhythm: regular rate and regular rhythm Heart Sounds: normal S1 and normal S2 Gastrointestinal (Abdomen): soft, Mild tenderness at RUQ, no rebound pain, BS + Musculoskeletal: no cyanosis or clubbing, extremities motor strength 5/5 Skin: no rashes, warm and dry Neurologic: patellar DTR's 2+ bilat, sensation intact Psychiatric: Orientation: alert and oriented x 3 Results & Data Vital Signs (Past 12 Hours) Vital Signs Temp Pulse Pulse Pulse Resp BP BP 01/09/20 19:05 36.1 C L 82 15 110/63 01/09/20 18:55 74 14 87/53 L 01/09/20 18:49 36 C L 78 13 88/43 L 01/09/20 17:30 37.2 C 77 16 126/88 01/09/20 16:15 36.9 C 74 18 137/77 01/09/20 15:46 86 20 01/09/20 13:09 78 18 01/09/20 10:47 37.1 C 111 H 20 141/91 H BP Pulse Ox 01/09/20 19:05 97 01/09/20 18:55 96 01/09/20 18:49 96 01/09/20 17:30 98 01/09/20 16:15 98 01/09/20 15:46 135/84 100 01/09/20 13:09 135/87 98 01/09/20 10:47 100 Laboratory Results Abnormal lab results 01/09/20 01/09/20 01/09/20 Range/Units 12:01 12:01 17:14 RBC 4.19 L (4.7-6.1) M/uL Hgb 11.8 L (14.0-18.0) g/dL Hct 33.5 L (42-52) % Lymph # (Auto) 1.09 L (1.2-3.4) K/uL Osborne # (Auto) 0.75 H (0.11-0.59) K/uL Immature Gran # (Auto) 0.07 H (0.00-0.02) K/uL BUN 22 H (7-18) mg/dl Creatinine 1.47 H (0.6-1.4) mg/dl Glucose 204 H (70-99) mg/dl POC Glucose 150 H (70-99) mg/dl Total Bilirubin 5.2 H (0.2-1) mg/dl AST 105 H (15-37) U/L ALT 243 H (12-78) U/L Alkaline Phosphatase 307 H (45-117) U/L Total Protein 8.8 H (6.4-8.2) gm/dl Albumin 3.2 L (3.4-5.0) gm/dl Globulin 5.6 H (2.5-4.0) gm/dl Albumin/Globulin Ratio 0.6 L (0.9-2) Urine Glucose (UA) (Negative) Urine Ketones (Negative) Urine Nitrite (Negative) Urine Bilirubin (Negative) Ur Leukocyte Esterase (Negative) U Hyaline Cast (Auto) (0-5) /lpf U Epithel Cells (Auto) (0-5) /lpf 01/09/20 01/09/20 Range/Units 18:53 Unknown RBC (4.7-6.1) M/uL Hgb (14.0-18.0) g/dL Hct (42-52) % Lymph # (Auto) (1.2-3.4) K/uL Osborne # (Auto) (0.11-0.59) K/uL Immature Gran # (Auto) (0.00-0.02) K/uL BUN (7-18) mg/dl Creatinine (0.6-1.4) mg/dl Glucose (70-99) mg/dl POC Glucose 145 H (70-99) mg/dl Total Bilirubin (0.2-1) mg/dl AST (15-37) U/L ALT (12-78) U/L Alkaline Phosphatase (45-117) U/L Total Protein (6.4-8.2) gm/dl Albumin (3.4-5.0) gm/dl Globulin (2.5-4.0) gm/dl Albumin/Globulin Ratio (0.9-2) Urine Glucose (UA) Trace H (Negative) Urine Ketones Trace H (Negative) Urine Nitrite Positive A (Negative) Urine Bilirubin 3+ H (Negative) Ur Leukocyte Esterase Trace H (Negative) U Hyaline Cast (Auto) 5-10 H (0-5) /lpf U Epithel Cells (Auto) 5-10 H (0-5) /lpf Diagnostic Findings US gallbladder CLINICAL HISTORY: elevated LFTS jaundice COMPARISON STUDY: CT scan dated 02/17/2018 FINDINGS: No focal hepatic masses are visualized. There is no definite intrahepatic biliary ductal dilatation. The gallbladder is contracted. There is an equivocal subcentimeter calculus in the gallbladder neck. The pancreas is poorly visualized due to overlying bowel gas. No definite pancreatic abnormalities are evident. The common bile duct appeared mildly dilated and appear to contain echogenic debris. IMPRESSION: 1. Mildly dilated common bile duct ranging from 8 to 10 mm. Echogenic debris was visualized within the duct. 2. Contracted gallbladder containing an equivocal [address] SCAN OF THE ABDOMEN AND PELVIS WITH IV CONTRAST CLINICAL HISTORY: Right lower quadrant abdominal pain. COMPARISON STUDY: No priors. TECHNIQUE: Following the IV administration of 94 cc of Optiray 320, CT scan of the abdomen and pelvis is performed from the lung bases to the proximal femora. Images are reviewed in the axial, sagittal, and coronal planes. IV contrast was administered without complication. A dose lowering technique was utilized adhering to the principles of ALARA. CT DOSE: 913.13 mGycm FINDINGS: Lung bases: The heart is normal in size and without pericardial effusion. The lung bases are clear. There is a tiny hiatal hernia. Liver: The contrast-enhanced liver is top normal in size. The liver is normal in contour and attenuation. The left lobe is diminutive/atrophic. There is no intrahepatic biliary ductal dilatation. The hepatic veins and portal veins are patent. Gallbladder: The gallbladder is contracted. There is hyperdense material identified throughout the common bile duct with a large linear filling defect suggested. This is best seen on images #[id number]. Spleen: Normal in size and attenuation. Pancreas: Unremarkable. Adrenal glands: Unremarkable. Kidneys: The contrast enhanced kidneys are normal in size and without hydronephrosis. The kidneys enhance symmetrically. A 15 mm cyst is noted in the left upper pole. Abdominal vasculature: The abdominal aorta is normal in course and caliber. Bowel: No bowel obstruction is seen. The appendix is distended and fluid- filled, measuring 15 mm in diameter. This is best seen on image #319. The appendiceal wall is thickened and hyperemic and there is significant periappendiceal inflammatory stranding. There are foci of extra luminal gas near the base of the appendix on image #305 indicating perforation. No organized fluid collection is seen to indicate abscess. Wall thickening and edema is identified in the adjacent cecum and is likely reactive. Peritoneum: There are small foci of intraperitoneal free air seen adjacent to the appendix as detailed above. There is a small volume of free fluid in the pelvis. There is a small fat-containing umbilical hernia. Lymphadenopathy: None. Pelvic viscera: The bladder, prostate, and seminal vesicles are normal as visualized. Skeletal structures: A large bone island is noted in the right seventh rib. There are healed bilateral rib fractures. No lytic or blastic lesions are seen. IMPRESSION: 1. Findings are consistent with severe acute appendicitis with evidence of perforation. 2. There is no organized fluid collection seen to indicate abscess. 3. Wall thickening in the adjacent cecum and free fluid in the pelvis are likely on a reactive basis. 4. There is nonspecific hyperdense material seen filling the common bile duct with a large linear intraluminal filling defect identified. This is of indeterminate etiology and significance. Correlation with a right upper quadrant ultrasound is recommended. FL ERCP biliary ductal CLINICAL HISTORY: ERCP COMPARISON STUDY: None FLUOROSCOPY TIME: 182 seconds. NUMBER OF FLUOROSCOPIC IMAGES: 18 FINDINGS: The common bile duct was cannulated and retrograde fashion. Contrast was instilled. A balloon catheter was introduced into the common bile duct. There are multiple filling defects within a left hepatic lobe biliary ductal branch. The final image demonstrates placement of 2 biliary enteric stents. IMPRESSION: Calculi were visualized within the left main hepatic duct. Images demonstrate a balloon catheter being swept through the duct. The final image demonstrates placement of 2 biliary enteric stents. (1) Cholelithiasis Biliary obstruction: with biliary obstruction Cholecystitis presence: without cholecystitis Cholelithiasis location: gallbladder Qualified Code(s): K80.21 - Calculus of gallbladder without cholecystitis with obstruction
[2020-01-09] MEDS: PIPERACILLIN/TAZOBACTAM 3.375 GM in DEXTROSE 5% 100 ML IV SCH (20:03)
[2020-01-09] MEDS: LACTATED RINGER'S 1,000 ML IV SCH (21:21)
[2020-01-10] MEDS: LACTATED RINGER'S 1,000 ML IV SCH ×3 (04:50→18:03)
[2020-01-10] MEDS: PIPERACILLIN/TAZOBACTAM 3.375 GM in DEXTROSE 5% 100 ML IV SCH ×2 (04:52→17:43)
[2020-01-10 06:04] LABS: Basophils # (auto) 0.02 K/uL (0-0.2); Basophils % (auto) 0.3 %; Eosinophils # (auto) 0.16 K/uL (0-0.5); Eosinophils % (auto) 2.3 %; Hematocrit (blood only) 30.3 % (42-52); Hemoglobin 10.7 g/dL (14.0-18.0); Immature Granulocytes # (auto) 0.06 K/uL (0.00-0.02); Immature Granulocytes % (auto) 0.8 %; Lymphocytes # (auto) 1.03 K/uL (1.2-3.4); Lymphocytes % (auto) 14.5 %; Mean Corpuscular Hemoglobin 27.9 pg (25-34); Mean Corpuscular Hgb Conc 35.3 g/dL (32-36); Mean Corpuscular Volume 79.1 fL (80-100); Mean Platelet Volume 9.3 fL (7.4-10.4); Monocytes # (auto) 0.62 K/uL (0.11-0.59); Monocytes % (auto) 8.7 %; Neutrophils % (auto) 73.4 %; Platelet Count 210 K/uL (130-400); RDW Coefficient of Variation 14.3 % (11.5-14.5); RDW Standard Deviation 41.3 fL (36.4-46.3); Red Blood Count 3.83 M/uL (4.7-6.1); White Blood Count 7.09 K/uL (4.8-10.8)
[2020-01-10] MEDS: INSULIN ASPART 100 UNITS/ML 3 ML PEN SC SCH ×4 (06:11→20:55)
[2020-01-10 06:44] LABS: Albumin Level 2.8 gm/dl (3.4-5.0); BUN Creatinine Ratio 15.4 (10-20); Calcium 8.2 mg/dl (8.5-10.1); Creatinine Clr Calc Pharmacy 73.2 ml/min; Est GFR (African American) 66.7; Est GFR (Non-African American) 57.6; Potassium 3.5 mmol/L (3.5-5.1)
[2020-01-10 07:01] LABS: Albumin Globulin Ratio 0.6 (0.9-2); Bilirubin,Total 3.2 mg/dl (0.2-1); Globulin 4.9 gm/dl (2.5-4.0); Total Protein 7.7 gm/dl (6.4-8.2)
--- NOTE | 2020-01-10 11:03 | Hospitalist Progress Note ---
Date of Service January 10, 2020 Assessment & Plan (1) Cholelithiasis with choledocholithiasis: Presented with right upper quadrant abdominal pain with history of gallstones Gallbladder US: 1. Mildly dilated common bile duct ranging from 8 to 10 mm. Echogenic debris was visualized within the duct. 2. Contracted gallbladder containing an equivocal 8 mm calculus No signs of acute cholecystitis. Has been started on intravenous Zosyn for possible cholangitis Appreciate GI input and recommendation Status post ERCP with biliary stenting Appreciate surgery input and the patient will have laparoscopic cholecystectomy today there is 01/10/2020 He has been feeling little better since admission (2) RUQ pain: (3) Transaminitis: Secondary to choledocholithiasis Status post ERCP with biliary stent placement on 01/09/2020 LFTs are improving We will monitor LFTs (4) TOO (acute kidney injury): BUN: 22, Cr: 1.47, GFR: 55 Suspect secondary to dehydration Continue IVF Avoid nephrotoxic agents when possible We will monitor PRP-creatinine remains elevated at 1.42 (5) HTN (hypertension): Stable Will hold losartan and HCTZ secondary to TOO (6) Diabetes mellitus, type 2: A1c: 6.5 on 01/08/2020 Hold metformin Novolog sliding scale with loose parameters at this time secondary to NPO status DVT Prophylaxis -Low risk, ambulate Follows with Dr Woodall for routine care Admission and Anticipated Discharge Date Admission Date: January 09, 2020 Subjective The patient was seen and examined in medical telemetry unit He has been complaining of right upper quadrant pain without nausea and/or vomiting He is a status post ERCP 22/10/19 and has been feeling a little better following that Review of Systems Review of Systems: All systems reviewed and are unremarkable except as noted below Gastrointestinal: + abdominal pain and + bloating; no nausea and no vomiting Physical Exam Physical Exam: Lying in bed with minimal distress due to abdominal discomfort Constitutional: well developed, well nourished, + acute distress, + ill appearing and + obese Eyes: PERRL, conjunctivae normal, anicteric sclerae ENMT: external ear and nose normal, oropharynx normal Neck: trachea midline, no thyromegaly Respiratory: normal respiratory effort; no respiratory distress Auscultation: lungs clear to auscultation bilaterally Cardiovascular: Rate/Rhythm: regular rate and regular rhythm Heart Sounds: no murmur Gastrointestinal (Abdomen): Inspection/Auscultation: abdomen normal to inspection and + abdomen distended (Minimally distended) Per cussion/Palpation: + abdomen tender (Right upper quadrant with rebound tenderness) Musculoskeletal: No acute arthritis involving any joints Neurologic: Alert, awake and oriented x3 Results & Data Results & Data ([facility]) Vital Signs (Past 12 Hours) Vital Signs Temp Pulse Pulse Resp BP Pulse Ox 01/10/20 07:25 65 01/10/20 07:10 37.0 C 66 18 125/78 98 01/10/20 03:20 36.9 C 77 20 118/69 96 01/10/20 00:41 68 01/09/20 23:27 36.8 C 65 20 123/76 98 Laboratory Results Short CBC 01/09/20 01/10/20 Range/Units 12:01 05:54 WBC 6.21 7.09 (4.8-10.8) K/uL Hgb 11.8 L 10.7 L (14.0-18.0) g/dL Hct 33.5 L 30.3 L (42-52) % Plt Count 209 210 (130-400) K/uL BMP 01/09/20 01/10/20 12:01 05:54 Sodium 137 140 Potassium 3.7 3.5 Chloride 107 111 H Carbon Dioxide 23 23 BUN 22 H 22 H Creatinine 1.47 H 1.42 H Glucose 204 H 135 H Calcium 8.7 8.2 L Liver Function 01/09/20 01/10/20 Range/Units 12:01 05:54 Total Bilirubin 5.2 H 3.2 H (0.2-1) mg/dl AST 105 H 75 H (15-37) U/L ALT 243 H 189 H (12-78) U/L Alkaline Phosphatase 307 H 254 H (45-117) U/L Albumin 3.2 L 2.8 L (3.4-5.0) gm/dl Urine 01/09/20 Range/Units Unknown Urine Color Dark Yellow Urine Appearance Clear (Clear) Urine pH 5.0 (4.5-7.5) Ur Specific Purling 1.014 (1.000-1.030) Urine Protein Negative (Negative) Urine Glucose (UA) Trace H (Negative) Medications Administered Current Inpatient Medications Dextrose (Dextrose 50%) 25 - 50 ml IV UD PRN; Protocol PRN Reason: Hypoglycemia Protocol Stop: 02/08/20 16:14 Glucagon (Glucagen) 1 mg SQ UD PRN; Protocol PRN Reason: Hypoglycemia Protocol Stop: 02/08/20 16:14 Glucose (Glucose 40%) 15 - 30 gm PO UD PRN; Protocol PRN Reason: Hypoglycemia Protocol Stop: 02/08/20 16:14 Glucose (Dex4 Glucose) 4 - 8 tabs PO UD PRN; Protocol PRN Reason: Hypoglycemia Protocol Stop: 02/08/20 16:14 Piperacillin Sod/Tazobactam (Sod 3.375 gm/ Dextrose) 115 mls @ 28.75 mls/hr IV Q8H JOSE RAMON; Protocol Stop: 01/19/20 20:59 Last Infusion: 01/10/20 09:27 Dose: Infused Documented by: Lactated Ringer's (Lr) 1,000 mls @ 125 mls/hr IV .Q8H JOSE RAMON Stop: 02/08/20 15:44 Last Admin: 01/10/20 04:50 Dose: 125 mls/hr Documented by: Insulin Aspart (Novolog Flexpen) 0 units SC Q6 JOSE RAMON Stop: 02/08/20 16:29 Last Admin: 01/10/20 06:11 Dose: Not Given Documented by: Miscellaneous (Carbohydrates For Hypoglycemia) 15 - 30 gm PO UD PRN PRN Reason: Hypoglycemia Protocol Stop: 02/08/20 16:14 Miscellaneous Information (Consult) 1 ea N/A UD PRN PRN Reason: Consult Stop: 02/08/20 15:36 Morphine Sulfate (Morphine Sulfate) 1 mg IV Q4H PRN PRN Reason: Pain Stop: 01/23/20 16:14 Ondansetron HCl (Zofran) 4 mg IV Q6H PRN PRN Reason: Nausea Stop: 02/08/20 14:28
--- NOTE | 2020-01-10 13:44 | Gastroenterology Progress Note ---
Date of Service January 10, 2020 Assessment & Plan (1) PSC (primary sclerosing cholangitis): 1. Agree with choley per surgery. 2. Zosyn or other broad antibiotic x 10 days; could change to cipro po on discharge. 3. NPO for surgery today. 4. Has OP GI f/u arranged. - Sees L David for PSC. - OP ERCP in 4-6 weeks to bile duct stents. GI will watch peripherally. (2) Cholelithiasis: (3) Biliary obstruction: Admission and Anticipated Discharge Date Admission Date: January 09, 2020 Subjective Mr. Graham is a 49 yr old male who underwent ERCP yesterday for PSC, choledocholithiasis and cholangitis. Pt awake, c/o "gassiness," bloating but otherwise free of pain. No nausea/vomiting. Afebrile, no leukocytosis (on Zosyn) and LFTs are improving: T bili 5.2-> 3.2; AST 105->75; ALT 243->189; Alk Phos 307->254. Review of Systems Review of Systems: ROS: Gen: Denies weakness, fevers, weight loss Eyes: No eye redness, or pain, no recent vision changes Resp: No SOB, no cough Cardio: No palpitations/irregular beats, no chest pain GI: per HPI, otherwise (-) : Denies pain on urination Skin: Jaundice and pruritis resolved Physical Exam Constitutional: WD/WN, vitals as above Eyes: PERRL, conjunctivae normal, anicteric sclerae ENMT: external ear and nose normal, oropharynx normal Neck: trachea midline, no thyromegaly Respiratory: normal respiratory effort, lungs clear to auscultation Cardiovascular: RRR, no murmur, no edema Gastrointestinal (Abdomen): Inspection/Auscultation: abdomen normal to inspection; abdomen not distended Percussion/Palpation: abdomen soft; abdomen nontender Skin: normal turgor; no jaundice Neurologic: PERRL, EOMI, accommodation nl, no face palsy, no dysarthria Psychiatric: A+Ox3, euthymic affect Lymphatic: no cervical or axillary lymphadenopathy Results & Data ([facility]) Vital Signs (Past 12 Hours) Vital Signs Temp Pulse Pulse Resp BP Pulse Ox 01/10/20 13:05 36.7 C 71 16 133/86 100 01/10/20 11:21 36.6 C 67 18 129/82 97 01/10/20 07:25 65 01/10/20 07:10 37.0 C 66 18 125/78 98 01/10/20 03:20 36.9 C 77 20 118/69 96 Laboratory Results WBC 7, Hb 10, Hct 30, Plat 210, Na 140, K 3.5, BUN 22, Cr 1.42, glucose 135. See HPI for LFTs. (1) Cholelithiasis Biliary obstruction: with biliary obstruction Cholecystitis presence: without cholecystitis Cholelithiasis location: gallbladder Qualified Code(s): K80.21 - Calculus of gallbladder without cholecystitis with obstruction
[2020-01-10] MEDS ORDERED: CEFAZOLIN 2000MG 2,000 MG/15 ML SYR IV ONE (13:57)
--- NOTE | 2020-01-10 13:57 | History & Physical Bridge Note ---
Date of Service January 10, 2020 History & Physical Bridge Note I have examined the patient, reviewed the History & Physical and in the interval since the performance of the History & Physical I have noted the following changes of clinical significance: no changes noted Supervising Physician Co-Signing Physician Notes Attending addendum: Patient seen and examined, care coordinated with Melanie Hernandez PA-C 49-year-old male with history of biliary colic, was scheduled to have laparoscopic cholecystectomy by Dr. Arteaga on September this year, Elective surgery was postponed due to secondary to COVID-19 pandemic. Patient presents with on and off right upper quadrant pain for last 5 days, Ultrasound of gallbladder showed possible obstructed gallstone biliary duct, Labs shows elevated bilirubin greater than 5/elevated AST ALT, transaminases Patient is afebrile, normal white count, does reports of low-grade fever and chills past few days Vitals as reported Lab and images reviewed Physical exam: as per Melanie Hernandez PA-C Obstructed gallstone/cholelithiasis/biliary colic [facility] updated, patient is ordered n.p.o., will have ERCP later today General surgery consulted for possible elective cholecystectomy Acute renal failure: Getting elevated 1.4, possible secondary to dehydration, poor p.o. intake, for acute gallstone cholecystitis Ordered for IV fluid, avoid NSAIDs and contrast studies Please refer to further documentation by Melanie Hernandez PA-C for discussion of other issues Rere Velasquez MD
[2020-01-10] MEDS ORDERED: BUPIVACAINE 0.5 % 5 MG/1 ML MPF 30ML VIAL ONE (14:18)
[2020-01-10] MEDS ORDERED: LIDOCAINE HCL 1% 20 ML VIAL ONE (14:18)
[2020-01-10] MEDS ORDERED: fentaNYL citrate 100 MCG/2 ML VIAL ONE (14:24)
[2020-01-10] MEDS ORDERED: ROCURONIUM BROMIDE 10 MG/ML 5 ML VIAL IV ONE ×3 (14:24→15:52)
[2020-01-10] MEDS ORDERED: ONDANSETRON INJ 2 MG/ML 2 ML VIAL ONE (14:24)
[2020-01-10] MEDS ORDERED: LIDOCAINE HCL 2% 2 ML VIAL/AMP(20MG/ML) INFIL ONE (14:24)
[2020-01-10] MEDS ORDERED: DEXAMETHASONE SOD INJ 4 MG/ML VIAL ONE (14:24)
[2020-01-10] MEDS ORDERED: PROPOFOL IV EMULSION 10 MG/ML 20 ML VIAL IV ONE (14:24)
[2020-01-10] MEDS ORDERED: MIDAZOLAM HCL 1 MG/ML 2ML VIAL ONE (14:24)
[2020-01-10] MEDS ORDERED: ePHEDrine sulfate 50 MG/ML AMP IV PRN (14:34)
[2020-01-10] MEDS ORDERED: ONDANSETRON INJ 2 MG/ML 2 ML VIAL IV PRN (14:34)
[2020-01-10] MEDS ORDERED: HYDROmorphone INJ 2 MG/ML SYR/VIAL IV PRN (14:34)
[2020-01-10] MEDS ORDERED: ATROPINE SULFATE 0.1 MG/ML 10ML SYR IV PRN (14:34)
--- NOTE | 2020-01-10 14:35 | Anesthesiology Consultation ---
Date of Service January 10, 2020 Assessment & Plan ASA ASA3 Proposed Anesthesia Anesthesia Type: General Risk / Benefits Reviewed With: PT / POA / Parent / Guardian, Accepts Plan and Informed Consent Obtained History Surgery Operation Date: 01/09/20 12:15 Proposed Procedures p Endoscopic Retrograde Cholangiopancreatogram - Harmony Chappell MD Operation Date: 01/10/20 12:30 Proposed Procedures p Laparoscopic Cholecystectomy - Jenny Geller MD Height/Weight Height: 6 ft 2 in Weight: 92 kg Allergies Allergy/AdvReac Type Severity Reaction Status Date / Time No Known Allergies Allergy Unverified 01/09/20 11:19 Medications Home Medications Medication Instructions Recorded Confirmed Last Taken hydrochlorothiazide 25 mg PO QAM 08/10/19 01/09/20 Unknown losartan [Cozaar] 100 mg PO QAM 08/10/19 01/09/20 Unknown metformin 1,000 mg PO BID 08/10/19 01/09/20 Unknown pantoprazole [Protonix] 40 mg PO QAM 08/10/19 01/09/20 Unknown ursodiol 500 mg PO TID 01/09/20 01/09/20 Unknown Active Medications Generic Name Dose Route Start Last Admin Trade Name Freq PRN Reason Stop Dose Admin Piperacillin Sod/Tazobactam 115 mls @ 28.75 mls/hr 01/09/20 21:00 01/10/20 09:27 Sod 3.375 gm/ Dextrose IV 01/19/20 20:59 Infused Q8H JOSE RAMON Infusion Protocol Lactated Ringer's 1,000 mls @ 125 mls/hr 01/09/20 15:45 01/10/20 04:50 Lr IV 02/08/20 15:44 125 mls/hr .Q8H JOSE RAMON Administration Insulin Aspart 0 units 01/09/20 18:00 01/10/20 11:52 Novolog Flexpen SC 02/08/20 16:29 Not Given Q6 JOSE RAMON NPO Date Last Intake of Fluids: 01/09/20 Time Last Intake of Fluids: 23:00 Date Last Intake of Solids: 01/09/20 Time Last Intake of Solids: 06:00 Past Medical History Medical History Abnormal liver scan pt states "they saw something on my liver. 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 Exercise / Class Metabolic Activity II 4-5 Yardwork/Stairs/Walk up hill Past Family History Family History Mother Family history of diabetes mellitus Sister Family history of diabetes mellitus Other No family history of adverse response to anesthesia Past Surgical History Surgical History History of appendectomy History of ERCP History of esophagogastroduodenoscopy (EGD) Past Anesthesia History No Hx of Anesthesia Complications and No Family Hx of Anesthesia Complications History of PONV No Hx of PONV and No Hx of Motion Sickness Social History Smoking Status: Current some day smoker tobacco type: cigars Smoking cigarettes per day: occasional Do You Dip or Chew Tobacco: No Hx Alcohol Use: Yes alcohol intake frequency: a few times a month Alcohol Intake Frequency Comment: 2 to 4 times a month Hx Substance Use: No substance use type: does not use Review of Systems denies fever/cough/ colds/ chest pain/ SOB/ MIGUEL Constitutional: no fever and no chills Respiratory: no cough and no dyspnea denies MIGUEL Cardiovascular: no chest pain and no dyspnea on exertion Physical Exam Vital Signs Last Vital Signs Temp 36.7 C 01/10/20 13:05 Pulse 71 01/10/20 13:05 Resp 16 01/10/20 13:05 BP 133/86 01/10/20 13:05 Pulse Ox 100 01/10/20 13:05 ENMT Mouth: no TMJ abnormality and no dentition abnormality Thyromental Distance: > or= 3.5 Finger Breadths Mallampati Class: II Neck neck extension not limited Respiratory normal respiratory effort; no respiratory distress Auscultation: lungs clear to auscultation bilaterally Cardiovascular Rate/Rhythm: regular rate and regular rhythm Neurologic moves all extremities Psychiatric Orientation: alert and oriented x 3 Testing Laboratory Results 01/10/20 05:54 01/10/20 05:54 PT 10.6 Seconds (9.0-12.0) 01/09/20 14:58 INR 1.0 (0.9-1.1) 01/09/20 14:58 Urine Color Dark Yellow 01/09/20 Unknown Urine Appearance Clear (Clear) 01/09/20 Unknown Urine pH 5.0 (4.5-7.5) 01/09/20 Unknown Ur Specific [place] 1.014 (1.000-1.030) 01/09/20 Unknown Urine Protein Negative (Negative) 01/09/20 Unknown Urine Glucose (UA) Trace (Negative) H 01/09/20 Unknown Urine Ketones Trace (Negative) H 01/09/20 Unknown Urine Nitrite Positive (Negative) A 01/09/20 Unknown Ur Leukocyte Esterase Trace (Negative) H 01/09/20 Unknown Urine WBC (Auto) 1-5 /hpf (0-5) 01/09/20 Unknown Urine RBC (Auto) 0-4 /hpf (0-4) 01/09/20 Unknown U Hyaline Cast (Auto) 5-10 /lpf (0-5) H 01/09/20 Unknown U Epithel Cells (Auto) 5-10 /lpf (0-5) H 01/09/20 Unknown Urine Bacteria (Auto) Negative (Negative) 01/09/20 Unknown 01/10/20 01/10/20 11:38 06:06 POC Glucose 144 H 140 H
[2020-01-10] MEDS ORDERED: BACITRACIN OINT 15 GM TUBE ONE (14:54)
--- NOTE | 2020-01-10 15:56 | Post Operative Brief Note ---
Immediate Post Op Note v1 Date of Surgery January 10, 2020 Pre & Post Diagnosis Operation Date: 01/09/20 12:15 Pre-Op Diagnosis: Common bile duct obstruction, calculus of gallbladder cholecystitis Post-Op Diagnosis: Common bile duct obstruction, calculus of gallbladder cholecystitis Operation Date: 01/10/20 12:30 Pre-Op Diagnosis: RUQ pain, cholelithiasis, chronic cholecystitis, cholangitis Post-Op Diagnosis: RUQ pain, cholelithiasis, chronic cholecystitis, cholangitis I identified the patient and participated in the time-out.: Yes Procedure Operation Date: 01/09/20 12:15 Actual Procedures p Endoscopic Retrograde Cholangiopancreatogram, biliary stent placement (Not Applicable) - Harmony Chappell MD Operation Date: 01/10/20 12:30 Actual Procedures p Laparoscopic Cholecystectomy(Not Applicable) - Jenny Geller MD Surgeon Jenny Geller MD Manager Plumbing ADAMARIS Fraire Estimated Blood Loss 10 Findings Consistent with Post-Op Diagnosis chronic cholecystitis Fluids 600ml Specimens gallbladder Anesthesia Type General Complications none Disposition Accompanied Patient To Recovery: Yes Disposition: Recovery Room Overlapping Procedure I was immediately available: during the entire case.
[2020-01-10] MEDS: fentaNYL citrate 100 MCG/2 ML VIAL IV PRN ×2 (16:42→16:48)
--- NOTE | 2020-01-10 16:46 | Operative Report (OR) ---
DATE OF OPERATION: 01/10/2020 PREOPERATIVE DIAGNOSES: Chronic cholecystitis, cholelithiasis. POSTOPERATIVE DIAGNOSES: Chronic cholecystitis, cholelithiasis. OPERATION: Laparoscopic cholecystectomy. SURGEON: Jenny Geller MD. SHIPYARD PAINTER APPRENTICE: Dayana Mckenna PA-C. ANESTHESIA: General. ESTIMATED BLOOD LOSS: About 10 mL. FINDINGS: Chronic cholecystitis, cholelithiasis. COMPLICATIONS: None. INDICATIONS FOR THE PROCEDURE: This is a 49-year-old gentleman who is status post ERCP with removal of the common bile duct stone and patient also had symptomatic chronic cholecystitis with cholelithiasis. The patient is required to do laparoscopic cholecystectomy, possible open, possible cholangiogram. I did talk to the patient about the benefit, the risk, alternate procedure. I indicated the risks may include but not limited to such as bleeding, infection, bile leak, injury to common bile duct. The patient understands. He signed informed consent and I answered all questions. DETAILS OF PROCEDURE: We brought the patient to the OR, put the patient in the supine position. The patient received SCD on bilateral legs to prevent DVT and also the patient received 2 grams of Ancef IV for prophylactic antibiotic. The patient received general anesthesia without difficulties. Abdomen was prepped and draped in routine sterile fashion. After time-out, I injected local anesthesia by using 1% lidocaine mixed with 0.5% Marcaine just above the umbilicus. Then I made a small incision just above the umbilicus, opened fascia and opened peritoneum under direct vision, put a Geoff trocar in, connected to CO2 to create pneumoperitoneum, flow rate at 6 liters per minute, pressure not more than 14 mmHg. Once we got a nice pneumoperitoneum, we put a camera in, looked around the abdomen, shows normal finding on the liver. However, the gallbladder shows chronic cholecystitis, fibrous tissue and the gallbladder was significantly contracted. Once confirmed the diagnosis, we put another two 5 mm trocars on the right upper quadrant, one 12 trocar on the epigastric area. Then we used the grasper to hold the gallbladder on the base to put in the direction to the diaphragm and then we took down the omental adhesion to the gallbladder. Then, another grasper to hold the pouch of gallbladder, put a lateral to expose the triangle of Calot. Cystic duct was identified and mobilized. The cystic duct had significant dilatation close to 1 cm and we chose a 10 mm metal clip, clipped the proximal cystic duct x2 and one 10 mm metal clip to clip the distal cystic duct x1, then used the scissor for transection of the cystic duct. Rechecked, no bile leak. The cystic artery was identified and mobilized. I put two 5 mm metal clips on the proximal cystic artery and one on the distal cystic artery, then used the scissor for transection of cystic artery. Rechecked, no active bleeding. Then we used the Bovie to take down gallbladder from the liver bed and again we checked, no active bleeding, no bile leak from the liver bed. Then, we removed the gallbladder through the catch bag. Then, we reinserted the Geoff trocar in, connected to CO2 to create pneumoperitoneum, again looked around the abdomen, no active bleeding, no bile leak from the liver bed and then we removed all trocars under direct vision. No active bleeding from the trocar sites. Pneumoperitoneum was then released. Then I closed the umbilical incision, fascial layer by using 0 Vicryl [id number] x2, closed subcutaneous layer by using 2-0 Vicryl interruptedly, closed skin by using 4-0 Vicryl continuous running and then we closed the epigastric area incision, closed the fascial layer by using 0 Vicryl [id number] x2, closed subcutaneous layer by using 2-0 Vicryl interruptedly, closed skin by using 4-0 Vicryl interruptedly, closed another two 5 mm trocar sites skin only by using 4-0 Vicryl. Then, we put the dressing on. The patient tolerated the procedure well. All instrument, needle and sponge count were correct x2 at the end of the case. The patient was transferred to recovery room in stable condition. After the procedure, I did talk to the patient's about the OR finding and the procedure we did, she understands. I attest to the content of the Intraoperative Record and any orders documented therein. Any exception s are noted below.
[2020-01-10] MEDS ORDERED: HYDROmorphone INJ 0.5 MG/0.5 ML SYR ONE (16:51)
--- NOTE | 2020-01-10 17:15 | Anesthesiology Progress Note ---
Date of Service January 10, 2020 Anesthesia Post Procedure Vital Signs Vital Signs: Temp Pulse Pulse Pulse Resp BP Pulse Ox 01/10/20 17:10 67 17 130/80 94 01/10/20 17:05 36.7 C 68 16 134/82 96 01/10/20 16:55 68 12 130/82 94 01/10/20 16:45 66 17 120/76 98 01/10/20 16:35 64 17 120/70 98 01/10/20 16:25 62 17 115/70 98 01/10/20 16:16 37.0 C 67 16 109/65 98 01/10/20 13:05 36.7 C 71 16 133/86 100 01/10/20 11:21 36.6 C 67 18 129/82 97 01/10/20 07:25 65 01/10/20 07:10 37.0 C 66 18 125/78 98 01/10/20 03:20 36.9 C 77 20 118/69 96 01/10/20 00:41 68 01/09/20 23:27 36.8 C 65 20 123/76 98 01/09/20 20:05 36.5 C 60 18 145/84 H 99 01/09/20 19:30 36.6 C 68 125/76 99 01/09/20 19:05 36.1 C L 82 15 110/63 97 01/09/20 18:55 74 14 87/53 L 96 01/09/20 18:49 36 C L 78 13 88/43 L 96 01/09/20 17:30 37.2 C 77 16 126/88 98 Pain Intensity Abdomen: Pain Intensity: 4 Transfer of Care Handoff Completed per policy Notes Mental Status: alert / awake / arousable and participated in evaluation Patient Amnestic to Procedure: Yes Nausea / Vomiting: adequately controlled Pain: adequately controlled Airway Patency, RR, SpO2: stable & adequate BP & HR: stable & adequate Hydration State: stable & adequate Anesthetic Complications: no major complications apparent and Pt Satisfied with anesthetic care
[2020-01-10] MEDS ORDERED: OXYCODONE/ACETAMINOPHEN 5mg/325mg TAB PO PRN (17:22)
[2020-01-10] MEDS ORDERED: ACETAMINOPHEN 325 MG TAB PO PRN (17:22)
--- NOTE | 2020-01-10 17:33 | Electrocardiogram Report ---
Test Reason : Blood Pressure : / mmHG Vent. Rate : 067 BPM Atrial Rate : 067 BPM P-R Int : 128 ms QRS Dur : 102 ms QT Int : 424 ms P-R-T Axes : 068 076 066 degrees QTc Int : 448 ms Normal sinus rhythm Normal ECG No previous ECGs available Confirmed by Andrade Dykes ([id number]) on 01/10/2020 5:32:54 PM Referred By: REFERRED SELF Confirmed By:Jean Pierre Dykes
[2020-01-10] MEDS ORDERED: Nursing to Pharmacy Communication SCH (18:30)
[2020-01-10] MEDS ORDERED: SIMETHICONE 80 MG CHEW PO PRN (19:45)
[2020-01-10] MEDS: OXYCODONE HCL IR 5 MG TAB (IMMEDIATE RELEASE) PO PRN (20:26)
[2020-01-10] MEDS ORDERED: NON-FORMULARY MEDICATION (Ursodiol 500 MG) PO SCH (21:00)
[2020-01-11] MEDS: PIPERACILLIN/TAZOBACTAM 3.375 GM in DEXTROSE 5% 100 ML IV SCH ×2 (02:13→09:50)
[2020-01-11] MEDS: OXYCODONE HCL IR 5 MG TAB (IMMEDIATE RELEASE) PO PRN (02:49)
[2020-01-11] MEDS: LACTATED RINGER'S 1,000 ML IV SCH (05:52)
[2020-01-11 07:31] VITALS: BP 117/77; TEMP 98.8; O2SAT 95
[2020-01-11 07:59] LABS: Basophils # (auto) 0.01 K/uL (0-0.2); Basophils % (auto) 0.1 %; Eosinophils # (auto) 0.12 K/uL (0-0.5); Eosinophils % (auto) 1.5 %; Immature Granulocytes # (auto) 0.05 K/uL (0.00-0.02); Immature Granulocytes % (auto) 0.6 %; Lymphocytes # (auto) 1.57 K/uL (1.2-3.4); Lymphocytes % (auto) 19.2 %; Mean Corpuscular Hemoglobin 27.9 pg (25-34); Mean Corpuscular Hgb Conc 34.5 g/dL (32-36); Mean Platelet Volume 9.3 fL (7.4-10.4); Monocytes # (auto) 0.68 K/uL (0.11-0.59); Monocytes % (auto) 8.3 %; Neutrophils # (auto) 5.73 K/uL (1.4-6.5); Neutrophils % (auto) 70.3 %; Platelet Count 224 K/uL (130-400); RDW Coefficient of Variation 14.6 % (11.5-14.5); RDW Standard Deviation 43.2 fL (36.4-46.3); Red Blood Count 3.58 M/uL (4.7-6.1); White Blood Count 8.16 K/uL (4.8-10.8)
--- NOTE | 2020-01-11 08:08 | Anesthesiology Progress Note ---
Date of Service January 11, 2020 Anesthesia Post Procedure Vital Signs Vital Signs: Temp Pulse Pulse Pulse Resp BP Pulse Ox 01/11/20 07:30 37.1 C 84 17 117/77 95 01/11/20 02:36 37.0 C 78 16 125/79 96 01/11/20 01:37 79 01/10/20 23:12 37.2 C 93 H 18 130/78 97 01/10/20 19:45 37 C 85 20 133/83 97 01/10/20 18:06 81 01/10/20 17:24 36.7 C 69 16 131/72 96 01/10/20 17:10 67 17 130/80 94 01/10/20 17:05 36.7 C 68 16 134/82 96 01/10/20 16:55 68 12 130/82 94 01/10/20 16:45 66 17 120/76 98 01/10/20 16:35 64 17 120/70 98 01/10/20 16:25 62 17 115/70 98 01/10/20 16:16 37.0 C 67 16 109/65 98 01/10/20 13:05 36.7 C 71 16 133/86 100 01/10/20 11:21 36.6 C 67 18 129/82 97 Notes Mental Status: alert / awake / arousable and participated in evaluation Nausea / Vomiting: adequately controlled Pain: adequately controlled Airway Patency, RR, SpO2: stable & adequate BP & HR: stable & adequate Hydration State: stable & adequate Anesthetic Complications: no major complications apparent
[2020-01-11] MEDS: ursodioL 300 MG CAP PO SCH ×2 (08:10→13:56)
[2020-01-11] MEDS: INSULIN ASPART 100 UNITS/ML 3 ML PEN SC SCH ×2 (08:16→12:41)
[2020-01-11 08:54] LABS: Albumin Globulin Ratio 0.6 (0.9-2); Albumin Level 2.7 gm/dl (3.4-5.0); BUN Creatinine Ratio 12.2 (10-20); Bilirubin,Total 1.7 mg/dl (0.2-1); Calcium 8.7 mg/dl (8.5-10.1); Globulin 4.8 gm/dl (2.5-4.0); Potassium 3.6 mmol/L (3.5-5.1); Total Protein 7.5 gm/dl (6.4-8.2)
[2020-01-11] MEDS ORDERED: hydroCHLOROthiazide 25 MG TAB PO SCH (09:00)
[2020-01-11] MEDS ORDERED: LOSARTAN POTASSIUM 50 MG TAB PO SCH (09:00)
[2020-01-11] MEDS ORDERED: PANTOprazole 40 MG TAB PO SCH (09:00)
--- NOTE | 2020-01-11 09:51 | Surgery Progress Note ---
Date of Service January 11, 2020 Assessment & Plan (1) Biliary obstruction: POD # 1 s/p laparoscopic cholecystectomy, POD # 2 s/p ERCP with removal of choledocholithiasis and stent placement x 2 -vitals stable, afebrile - pain mild controlled - t. bili and LFTS improving - tolerated diet Plan: Okay to increase diet to low fat Doing well from surgical standpoint for discharge may need outpatient CMP in 1 week PO Antibiotics on discharge per GI GI follow-up follow-up surgical office in 2 weeks work note given (2) Cholelithiasis: (3) RUQ pain: (4) Transaminitis: Dr. Geller has seen and examined pt, agrees with above. Subjective feeling good, soreness at incision sites had more gas pains last night abdominal pain controlled no nausea or vomiting Physical Exam Constitutional: WD/WN, vitals as above no acute distress Respiratory: normal respiratory effort; no respiratory distress Gastrointestinal (Abdomen): Inspection/Auscultation: abdomen normal to inspection; abdomen not distended Percussion/Palpation: abdomen soft; abdomen nontender, no guarding and abdomen not rigid Skin: no rashes, warm and dry mild skin blisters at right lateral incision site at tegaderm dressing Psychiatric: Orientation: alert and oriented x 3 Results & Data Vital Signs (Past 12 Hours) Vital Signs Temp Pulse Pulse Resp BP Pulse Ox 01/11/20 07:30 37.1 C 84 17 117/77 95 01/11/20 02:36 37.0 C 78 16 125/79 96 01/11/20 01:37 79 01/10/20 23:12 37.2 C 93 H 18 130/78 97 Laboratory Results 01/11/20 01/11/20 01/11/20 Range/Units 07:38 07:27 07:27 WBC 8.16 (4.8-10.8) K/uL RBC 3.58 L (4.7-6.1) M/uL Hgb 10.0 L (14.0-18.0) g/dL Hct 29.0 L (42-52) % MCV 81.0 (80-100) fL MCH 27.9 (25-34) pg MCHC 34.5 (32-36) g/dL RDW Std Deviation 43.2 (36.4-46.3) fL RDW Coeff of Gretchen 14.6 H (11.5-14.5) % Plt Count 224 (130-400) K/uL MPV 9.3 (7.4-10.4) fL Immature Gran % (Auto) 0.6 % Neut % (Auto) 70.3 % Lymph % (Auto) 19.2 % Dawson % (Auto) 8.3 % Eos % (Auto) 1.5 % Baso % (Auto) 0.1 % Neut # (Auto) 5.73 (1.4-6.5) K/uL Lymph # (Auto) 1.57 (1.2-3.4) K/uL Dawson # (Auto) 0.68 H (0.11-0.59) K/uL Eos # (Auto) 0.12 (0-0.5) K/uL Baso # (Auto) 0.01 (0-0.2) K/uL Immature Gran # (Auto) 0.05 H (0.00-0.02) K/uL Sodium 139 (136-145) mmol/L Potassium 3.6 (3.5-5.1) mmol/L Chloride 110 H (98-107) mmol/L Carbon Dioxide 23 (21-32) mmol/L Anion Gap 6.0 (3-11) BUN 13 (7-18) mg/dl Creatinine 1.06 (0.6-1.4) mg/dl Est Cr Clr Drug Dosing 98.0 ml/min Est GFR ( Amer) 95.0 Est GFR (Non-Af Amer) 82.0 BUN/Creatinine Ratio 12.2 (10-20) Glucose 123 H (70-99) mg/dl POC Glucose 123 H (70-99) mg/dl Calcium 8.7 (8.5-10.1) mg/dl Total Bilirubin 1.7 H (0.2-1) mg/dl AST 45 H (15-37) U/L ALT 133 H (12-78) U/L Alkaline Phosphatase 238 H (45-117) U/L Total Protein 7.5 (6.4-8.2) gm/dl Albumin 2.7 L (3.4-5.0) gm/dl Globulin 4.8 H (2.5-4.0) gm/dl Albumin/Globulin Ratio 0.6 L (0.9-2) 01/10/20 01/10/20 01/10/20 Range/Units 20:54 17:22 16:19 WBC (4.8-10.8) K/uL RBC (4.7-6.1) M/uL Hgb (14.0-18.0) g/dL Hct (42-52) % MCV (80-100) fL MCH (25-34) pg MCHC (32-36) g/dL RDW Std Deviation (36.4-46.3) fL RDW Coeff of Gretchen (11.5-14.5) % Plt Count (130-400) K/uL MPV (7.4-10.4) fL Immature Gran % (Auto) % Neut % (Auto) % Lymph % (Auto) % Dawson % (Auto) % Eos % (Auto) % Baso % (Auto) % Neut # (Auto) (1.4-6.5) K/uL Lymph # (Auto) (1.2-3.4) K/uL Dawson # (Auto) (0.11-0.59) K/uL Eos # (Auto) (0-0.5) K/uL Baso # (Auto) (0-0.2) K/uL Immature Gran # (Auto) (0.00-0.02) K/uL Sodium (136-145) mmol/L Potassium (3.5-5.1) mmol/L Chloride (98-107) mmol/L Carbon Dioxide (21-32) mmol/L Anion Gap (3-11) BUN (7-18) mg/dl Creatinine (0.6-1.4) mg/dl Est Cr Clr Drug Dosing ml/min Est GFR ( Amer) Est GFR (Non-Af Amer) BUN/Creatinine Ratio (10-20) Glucose (70-99) mg/dl POC Glucose 255 H 130 H 151 H (70-99) mg/dl Calcium (8.5-10.1) mg/dl Total Bilirubin (0.2-1) mg/dl AST (15-37) U/L ALT (12-78) U/L Alkaline Phosphatase (45-117) U/L Total Protein (6.4-8.2) gm/dl Albumin (3.4-5.0) gm/dl Globulin (2.5-4.0) gm/dl Albumin/Globulin Ratio (0.9-2) 01/10/20 Range/Units 11:38 WBC (4.8-10.8) K/uL RBC (4.7-6.1) M/uL Hgb (14.0-18.0) g/dL Hct (42-52) % MCV (80-100) fL MCH (25-34) pg MCHC (32-36) g/dL RDW Std Deviation (36.4-46.3) fL RDW Coeff of Gretchen (11.5-14.5) % Plt Count (130-400) K/uL MPV (7.4-10.4) fL Immature Gran % (Auto) % Neut % (Auto) % Lymph % (Auto) % [place] % (Auto) % Eos % (Auto) % Baso % (Auto) % Neut # (Auto) (1.4-6.5) K/uL Lymph # (Auto) (1.2-3.4) K/uL [place] # (Auto) (0.11-0.59) K/uL Eos # (Auto) (0-0.5) K/uL Baso # (Auto) (0-0.2) K/uL Immature Gran # (Auto) (0.00-0.02) K/uL Sodium (136-145) mmol/L Potassium (3.5-5.1) mmol/L Chloride (98-107) mmol/L Carbon Dioxide (21-32) mmol/L Anion Gap (3-11) BUN (7-18) mg/dl Creatinine (0.6-1.4) mg/dl Est Cr Clr Drug Dosing ml/min Est GFR ( Amer) Est GFR (Non-Af Amer) BUN/Creatinine Ratio (10-20) Glucose (70-99) mg/dl POC Glucose 144 H (70-99) mg/dl Calcium (8.5-10.1) mg/dl Total Bilirubin (0.2-1) mg/dl AST (15-37) U/L ALT (12-78) U/L Alkaline Phosphatase (45-117) U/L Total Protein (6.4-8.2) gm/dl Albumin (3.4-5.0) gm/dl Globulin (2.5-4.0) gm/dl Albumin/Globulin Ratio (0.9-2) (1) Cholelithiasis Biliary obstruction: with biliary obstruction Cholecystitis presence: without cholecystitis Cholelithiasis location: gallbladder Qualified Code(s): K80.21 - Calculus of gallbladder without cholecystitis with obstruction
[2020-01-11] MEDS ORDERED: CIPROFLOXACIN 500 MG TAB PO SCH (11:15)
--- NOTE | 2020-01-11 11:23 | Hospitalist Progress Note ---
Date of Service January 11, 2020 Assessment & Plan (1) Cholelithiasis with choledocholithiasis: Presented with right upper quadrant abdominal pain with history of gallstones Gallbladder US: 1. Mildly dilated common bile duct ranging from 8 to 10 mm. Echogenic debris was visualized within the duct. 2. Contracted gallbladder containing an equivocal 8 mm calculus No signs of acute cholecystitis. Has been started on intravenous Zosyn for possible cholangitis Appreciate GI input and recommendation Status post ERCP with biliary stenting Appreciate surgery input and the patient will have laparoscopic cholecystectomy today there is 01/10/2020 Status post laparoscopic cholecystectomy 22/11/19 Has been doing much better today and tolerating regular diet He has been ambulating in the room without any significant problem Will be discharged home this afternoon (2) RUQ pain: (3) Transaminitis: Secondary to choledocholithiasis Status post ERCP with biliary stent placement on 01/09/2020 LFTs are improving We will monitor LFTs-still elevated due to primary sclerosing cholangitis but improving (4) TOO (acute kidney injury): BUN: 22, Cr: 1.47, GFR: 55 Suspect secondary to dehydration Continue IVF Avoid nephrotoxic agents when possible We will monitor PRP-creatinine remains elevated at 1.42 His creatinine has been normalized (5) HTN (hypertension): Stable Will hold losartan and HCTZ secondary to TOO We will restart his usual medications on discharge (6) Diabetes mellitus, type 2: A1c: 6.5 on 01/08/2020 Hold metformin Novolog sliding scale with loose parameters at this time secondary to NPO status DVT Prophylaxis -Low risk, ambulate Follows with Dr Woodall for routine care Discharge home this afternoon Admission and Anticipated Discharge Date Admission Date: January 09, 2020 Subjective The patient was seen and examined in medical telemetry unit He has been complaining of right upper quadrant pain without nausea and/or vomiting He is a status post ERCP 22/10/19 and has been feeling a little better following that 01/11/2020 The patient was seen and examined in medical telemetry unit He has been feeling a lot better following laparoscopic cholecystectomy on 01/10/2020 He has been tolerating regular diet and has been ambulating in the room without any significant symptoms Denies any fever and/or chills, no abdominal pain but discomfort and no nausea and/or vomiting Review of Systems Review of Systems: All systems reviewed and are unremarkable except as noted below Gastrointestinal: + abdominal pain (Discomfort in the right upper quadrant); no bloating, no nausea and no vomiting Physical Exam Physical Exam: Lying in bed without any discomfort Constitutional: well developed, well nourished, + ill appearing and + obese; no acute distress Eyes: PERRL, conjunctivae normal, anicteric sclerae ENMT: external ear and nose normal, oropharynx normal Neck: trachea midline, no thyromegaly Respiratory: normal respiratory effort; no respiratory distress Auscultation: lungs clear to auscultation bilaterally Cardiovascular: Rate/Rhythm: regular rate and regular rhythm Heart Sounds: no murmur Gastrointestinal (Abdomen): Inspection/Auscultation: abdomen normal to inspection and normal bowel sounds; abdomen not distended (Minimally distended) Percussion/Palpation: + abdomen tender (Minimal tenderness in the right upper quadrant) Musculoskeletal: No acute arthritis involving any joints Results & Data Results & Data ([facility]) Vital Signs (Past 12 Hours) Vital Signs Temp Pulse Pulse Resp BP Pulse Ox 01/11/20 08:00 72 01/11/20 07:30 37.1 C 84 17 117/77 95 01/11/20 02:36 37.0 C 78 16 125/79 96 01/11/20 01:37 79 Laboratory Results Short CBC 01/11/20 Range/Units 07:27 WBC 8.16 (4.8-10.8) K/uL Hgb 10.0 L (14.0-18.0) g/dL Hct 29.0 L (42-52) % Plt Count 224 (130-400) K/uL BMP 01/11/20 07:27 Sodium 139 Potassium 3.6 Chloride 110 H Carbon Dioxide 23 BUN 13 Creatinine 1.06 Glucose 123 H Calcium 8.7 Liver Function 01/11/20 Range/Units 07:27 Total Bilirubin 1.7 H (0.2-1) mg/dl AST 45 H (15-37) U/L ALT 133 H (12-78) U/L Alkaline Phosphatase 238 H (45-117) U/L Albumin 2.7 L (3.4-5.0) gm/dl Medications Administered Current Inpatient Medications Acetaminophen (Tylenol) 650 mg PO Q4H PRN PRN Reason: Mild Pain Stop: 02/09/20 17:21 Ciprofloxacin (Cipro) 500 mg PO BID JOSE RAMON Stop: 01/21/20 11:14 Dextrose (Dextrose 50%) 25 - 50 ml IV UD PRN; Protocol PRN Reason: Hypoglycemia Protocol Stop: 02/08/20 16:14 Glucagon (Glucagen) 1 mg SQ UD PRN; Protocol PRN Reason: Hypoglycemia Protocol Stop: 02/08/20 16:14 Glucose (Glucose 40%) 15 - 30 gm PO UD PRN; Protocol PRN Reason: Hypoglycemia Protocol Stop: 02/08/20 16:14 Glucose (Dex4 Glucose) 4 - 8 tabs PO UD PRN; Protocol PRN Reason: Hypoglycemia Protocol Stop: 02/08/20 16:14 [facility]chlorothiaz[facility] (Hctz) [facility] [place]: 02/10/20 08:59 Last Admin: 01/11/20 08:10 Dose: 25 mg Documented by: Lactated Ringer's (Lr) 1,000 mls @ 80 mls/hr IV .[id number] [facility] Stop: 02/09/20 17:21 Last Admin: 01/11/20 05:52 Dose: 80 mls/hr Documented by: Insulin Aspart (Novolog Flexpen) 0 units SC ACHS [facility] Stop: 02/08/20 17:59 Last Admin: 01/11/20 08:16 Dose: 3 units Documented by: Losartan Potassium (Cozaar) 100 mg PO [facility] Stop: 02/10/20 08:59 Last Admin: 01/11/20 08:11 Dose: 100 mg Documented by: Miscellaneous (Carbohydrates For Hypoglycemia) 15 - 30 gm PO UD PRN PRN Reason: Hypoglycemia Protocol Stop: 02/08/20 16:14 Morphine Sulfate (Morphine Sulfate) 1 mg IV Q4H PRN PRN Reason: Pain Stop: 01/23/20 16:14 Ondansetron HCl (Zofran) 4 mg IV Q6H PRN PRN Reason: Nausea Stop: 02/08/20 14:28 Oxycodone HCl (Roxicodone Immediate Rel) 5 mg PO Q6H PRN PRN Reason: Pain Stop: 01/24/20 19:44 Last Admin: 01/11/20 02:49 Dose: 5 mg Documented by: Pantoprazole Sodium (Protonix) 40 mg PO [facility] Stop: 02/10/20 08:59 Last Admin: 01/11/20 08:11 Dose: 40 mg Documented by: Simethicone (Mylicon) 80 mg PO Q6H PRN PRN Reason: Gas or Constipation Stop: 02/09/20 19:44 Last Admin: 01/11/20 02:59 Dose: 80 mg Documented by: Ursodiol (Actigall) 300 mg PO TID JOSE RAMON Stop: 02/10/20 08:59 Last Admin: 01/11/20 08:10 Dose: 300 mg Documented by:
[2020-01-11 14:43] VITALS: PULSE 67
--- NOTE | 2020-01-12 07:50 | Discharge Summary ---
Date of Service January 12, 2020 Admission HPI Per Admitting Provider Pt is 49 y/o M with PMH DM II, HTN, h/o gallstones presented to ER with c/o abdominal pain x 1 week. Pt with known h/o gallstones and was to have gallbladder out several months ago but this was postponed secondary to the pandemic. Pt states 6 days ago started with not feeling well with low grade fever 100.4F, nausea and dry heaves. Was followed by RUQ discomfort. Has been having decreased oral intake. Denies vomiting or diarrhea. Saw PCP office on 01/07/2020 and had labs yesterday revealing elevated LFTs and was referred to ER today. Pt states today started feeling better and no nausea or abdominal pain today. Denies diaphoresis, TELLES, dizziness, syncope, vision changes, neck pain, CP, SOB, orthopnea, palpitations, cough, sore throat, choking, otalgia, rhinorrhea, paresthesias, weakness, extremity weakness, extremity edema, rashes, urinary symptoms. Admission Exam Per Admitting Provider Physical Exam: General: no distress, WDWN Head: normocephalic, atraumatic Eyes: PERRL, EOM's intact, conjunctiva non-injected, +icteric ENT: normal inspection external ears, nose, mucous membranes mildly dry Neck: supple, trachea midline, non-tender Lungs: clear, no respiratory distress, no wheezing/rhonchi/rales CV: RRR, no murmur, no pretibial edema Abd: normal BS, soft, mild tenderness to palpation RUQ without rebound or guarding Ext: no cyanosis, no calf tenderness Neuro: A&O x 3, no focal deficits noted, normal affect Skin: warm, dry, skin slight yellow discoloration Principal Diagnosis Cholelithiasis with choledocholithiasis, status post ERCP with biliary stent and lab cholecystectomy, primary sclerosing cholangitis Discharge Exam Constitutional well developed, well nourished, + ill appearing and + obese; no acute distress Eyes PERRL, conjunctivae normal, anicteric sclerae ENMT external ear and nose normal, oropharynx normal Neck trachea midline, no thyromegaly Respiratory normal respiratory effort; no respiratory distress Auscultation: lungs clear to auscultation bilaterally Cardiovascular Rate/Rhythm: regular rate and regular rhythm Heart Sounds: no murmur Gastrointestinal (Abdomen) Inspection/Auscultation: abdomen normal to inspection and normal bowel sounds; abdomen not distended (Minimally distended) Percussion/Palpation: + abdomen tender (Minimal tenderness in the right upper quadrant) Discharge Data Allergies Allergy/AdvReac Type Severity Reaction Status Date / Time No Known Allergies Allergy Unverified 01/09/20 11:19 Consultations 01/09/20 14:11 ED Decision to Admit Stat 01/09/20 14:29 Consult Gastroenterology Routine 01/09/20 16:15 Consult General Surgery Routine Procedures Performed Operation Date: 01/09/20 12:15 Actual Procedures p Endoscopic Retrograde Cholangiopancreatogram, biliary stent placement (Not Applicable) - Harmony Chappell MD Operation Date: 01/10/20 12:30 Actual Procedures p Laparoscopic Cholecystectomy(Not Applicable) - Jenny Geller MD Ordered Studies 01/09/20 11:51 US gallbladder Stat 01/09/20 16:00 FL ERCP biliary ductal Routine Hospital Course (1) Cholelithiasis with choledocholithiasis: Presented with right upper quadrant abdominal pain with history of gallstones Gallbladder US: 1. Mildly dilated common bile duct ranging from 8 to 10 mm. Echogenic debris was visualized within the duct. 2. Contracted gallbladder containing an equivocal 8 mm calculus No signs of acute cholecystitis. Has been started on intravenous Zosyn for possible cholangitis Appreciate GI input and recommendation Status post ERCP with biliary stenting Appreciate surgery input and the patient will have laparoscopic cholecystectomy today there is 01/10/2020 Status post laparoscopic cholecystectomy 22/11/19 Has been doing much better today and tolerating regular diet He has been ambulating in the room without any significant problem Will be discharged home this afternoon (2) RUQ pain: (3) Transaminitis: Secondary to choledocholithiasis Status post ERCP with biliary stent placement on 01/09/2020 LFTs are improving We will monitor LFTs-still elevated due to primary sclerosing cholangitis but improving (4) TOO (acute kidney injury): BUN: 22, Cr: 1.47, GFR: 55 Suspect secondary to dehydration Continue IVF Avoid nephrotoxic agents when possible We will monitor PRP-creatinine remains elevated at 1.42 His creatinine has been normalized (5) HTN (hypertension): Stable Will hold losartan and HCTZ secondary to TOO We will restart his usual medications on discharge (6) Diabetes mellitus, type 2: A1c: 6.5 on 01/08/2020 Hold metformin Novolog sliding scale with loose parameters at this time secondary to NPO status DVT Prophylaxis -Low risk, ambulate Follows with Dr Woodall for routine care Discharge home this afternoon Total Time Total Time Spent Total Time Spent (In Minutes): 35 minutes Total Time Includes: Examination of the Patient, Discharge Planning, Medication Reconciliation and Communication With Other Providers Discharge Plan Discharge Items Patient Disposition: Home - Self-Care Reason For Visit: ABD PAIN,JAUNDICE Discharge Diagnosis: Cholelithiasis with choledocholithiasis, status post ERCP with biliary stent and lab cholecystectomy, primary sclerosing cholangitis Condition on Discharge: Fair Activity: As commented below Activity Comment: As advised by general surgery Non-emergency contact: Primary Care Provider Call non-emergency contact if: you have any medication questions and your symptoms worsen Follow-up/Referrals: Jesus Woodall MD [Primary Care Provider] - 01/18/20 12:00 pm (01/18/2020 12:00 PM Provider Jesus Woodall MD Department General Internal Medicine [facility] ) Diet: Carb Consistent or DM2 and Low Fat Addtl Attending Provider Instructions: Please take it easy until you are being evaluated by your primary care physician Finish the course of antibiotic Please take precaution to avoid falls Addtl Interactive Video Technician Provider Instructions: General Surgery discharge instructions: - no heavy lifting over 25 pounds for 4 weeks - no strenuous activity until cleared by surgeon, walking is encouraged daily to prevent blood clots from forming in your legs - No driving while taking narcotic pain medication - You may shower 3 days after your surgery. Sponge bath and wash hair in meantime. - Leave steri strips on for 7 days and then remove. They may fall off on their own. - May take extra strength Tylenol as needed for mild pain -650 mg every 6 hours as needed - Follow-up in surgical office in 2 weeks. Please call office at [phone] to make an appointment. Pending Studies at Discharge: Yes (gallbladder pathology, will be reviewed at follow-up visit) Stand-Alone Forms: [facility], Smoking Cessation Medications and DC Order Prescriptions: New ciprofloxacin HCl 500 mg Tablet 500 mg PO BID 8 Days Qty: 16 RF: 0 Lactinex 1 million cell tablet,chewable 1 tab PO BID Qty: 30 RF: 0 Continued pantoprazole [Protonix] 40 mg Tablet,Delayed Release (Dr/Ec) 40 mg PO QAM RF: 0 metformin 1,000 mg Tablet 1,000 mg PO BID RF: 0 hydrochlorothiazide 25 mg Tablet 25 mg PO QAM RF: 0 losartan [Cozaar] 100 mg Tablet 100 mg PO QAM RF: 0 ursodiol 500 mg tablet 500 mg PO TID RF: 0 Discharge Orders: Discharge Order (Routine); Ordered 01/11/20 Ordered By: Cristina Garcia Admission Data Admit Date/Time: 01/09/20 14:29 Attending Provider: Cristina Garcia Admit Provider: Rere Velasquez Primary Care Provider: Jesus Woodall Other Providers: Rere Velasquez ; Isha Ring ; Dayana Gibbs ; Susan Aggarwal ; Becca Lou ; Jerardo Sauer ; Theresa Perez ; Deepak Woodard ; Sultana Chairez ; Ishmael Ortiz ; Rafal Kovacs ; Junie Lemon ; Le Maldonado ; Melissa Hernandez ; Janice Wynn ; Harmony Chappell ; Jenny Geller Other Interventions: Discharge Summary Assessment (RN) Last Done: 01/11/20 14:41 DC Date/Time DO NOT enter until pt leaves facility: 01/11/20 15:00
== END 2020-01-11 15:00 | disposition home or self-care (01) | DRG 418 ==
LOC: ED 10:46 → 2N 14:29 → SUATTDRO 14:29 → 2N 15:58